=== PATIENT | female | born 1985 ===

== ENCOUNTER → 2020-02-15 08:55 | Outpatient (BNVA) | payer MEDICAID, SELFPAY | PROVIDERS: Visit Provider Physician Assistant | DX: E66.01 Morbid (severe) obesity due to excess calories (principal); Z68.42 Body mass index [BMI] 45.0-49.9, adult | CPT/HCPCS: 99212 ==

== ENCOUNTER 2020-02-15 10:26 | Outpatient (REF) | payer MEDICAID, SELFPAY ==
[2020-02-15 11:44] LABS: MANUAL DIFF FLAG NO
[2020-02-15 11:56] LABS: Basophils Percent Auto 0.5 % (0-2); Eosinophils Absolute Auto 0.2 X10*3/uL (0.0-0.4); Eosinophils Percent Auto 2.6 % (0-4); Hematocrit 32.6 % (37-47); Hemoglobin 9.9 g/dl (12.0-16.0); Imm Gran Abs Auto 0.02 X10*3/uL (0.00-0.03); Imm Gran Pct Auto 0.3 % (0.0-0.4); Lymphocytes Percent Auto 32.4 % (20-40); Mean Corpuscular HGB Conc 30.4 g/dl (31.0-35.0); Mean Corpuscular Hemoglobin 22.3 pg (27.0-33.0); Mean Corpuscular Volume 73.4 fL (80-98); Mean Platelet Volume 10.7 fL (9.4-12.3); Monocytes Absolute Auto 0.4 X10*3/uL (0.1-1.2); Monocytes Percent Auto 7.2 % (2-11); Neutrophils Absolute Auto 3.5 X10*3/uL (2.0-8.3); Platelet Count 411 X10*3/uL (160-400); Red Blood Count 4.44 X10*6/uL (4.20-5.50); Red Cell Distribution Width 17.2 % (11.0-16.0); White Blood Count 6.2 X10*3/uL (4.8-10.8)
[2020-02-15 12:03] LABS: Estimated Average Glucose 108 mg/dL; Hemoglobin A1c % 5.4 %
[2020-02-15 12:26] LABS: Alanine Aminotransferase 11 U/L (0-31); Alkaline Phosphatase 62 U/L (39-117); Anion Gap 12 (12-20); Aspartate Amino Transferase 10 U/L (5-31); Bilirubin Total 0.4 mg/dL (0.0-1.0); Blood Urea Nitrogen 11 mg/dL (9-16); C Reactive Protein 1.77 mg/dL (< or = 0.50); Calcium 8.3 mg/dL (8.4-10.2); Carbon Dioxide 26 mmol/L (22-29); Chloride 106 mmol/L (96-108); Cholesterol 140 mg/dL; Estimated Glomerular Filt Rate > 60; Glucose Fasting 77 mg/dL (60-99); HDL Cholesterol 40 mg/dL; Iron 16 mcg/dL (30-160); LDL Cholesterol Calculated 88 mg/dl; Percent Iron Saturation 4 % (15-50); Potassium 4.2 mmol/l (3.3-5.1); Sodium 140 mmol/L (135-145); Total Iron Binding Capacity 446 mcg/dL (228-428); Total Protein 7.6 g/dL (6.5-8.0); Triglycerides 61 mg/dL; Unsaturated Iron Binding 430 ug/dL
[2020-02-15 12:47] LABS: Ferritin 7 ng/mL (10-122); TSH reflex Free T4 0.85 mIU/mL (0.32-4.0); Vitamin D 25-OH Total 20.9 ng/mL (>30)
[2020-02-15 12:53] LABS: Folate 9.9 ng/mL (> or = 4.0); Vitamin B12 385 pg/mL (200-900)
[2020-02-16 22:43] LABS: Calcium (PTHI) 8.5 mg/dL (8.6-10.2); PTHI 39 pg/mL (14-64)
[2020-02-17 05:42] LABS: Insulin Level Total 9.3 uIU/mL
[2020-02-18 11:19] LABS: Vitamin B1 8 nmol/L (8-30)
[2020-02-18 14:02] LABS: Zinc 53 mcg/dL (60-130)
[2020-02-22 22:14] LABS: Vitamin A 27 mcg/dL (38-98)
== END 2020-02-15 10:27 | disposition home or self-care (01) ==
LOC: HO.LAB 10:26
PROVIDERS: PCP Internal Medicine; Visit Provider Physician Assistant
DX: E66.01 Morbid (severe) obesity due to excess calories (principal)
CPT/HCPCS: 36415; 80053; 80061; 82306; 82607; 82728; 82746; 83036; 83525; 83540; 83970; 84425; 84443; 84590; 84630; 85025; 86140

== ENCOUNTER 2020-02-23 09:48 | Emergency (ER) | payer MEDICAID, SELFPAY ==
[2020-02-23 09:49] VITALS: BP 125/69; PULSE 88; RESP 16; TEMP 32.2; O2SAT 99; BMI 46.7
--- NOTE | 2020-02-23 10:21 | ED_ITS ---
HPI - Allergic Reaction General Chief complaint: Allergic Reaction Stated complaint: allergic reaction Time Seen by Provider: 02/23/20 10:09 Source: patient Mode of arrival: ambulatory History of Present Illness HPI narrative: 34-year-old female with a past medical history of obesity presented to ED complaining of allergic reaction since 3:00 a.m. with notable facial/lip swelling and hoarse voice s/p taking new medications. Reports newly prescribed oyster shell calcium, zinc, and vitamin D3, took for 1st time yesterday morning at 11AM, reaction believed to be due to oyster shell calcium. Denies other new exposures. Denies SOB, intraoral swelling, difficulty swallowing, cough, wheezing, other known allergies MD complaint: allergic reaction and facial swelling Onset (ago): hour(s) Related Data Home Medications Medication Instructions Recorded Confirmed hydroxyzine pamoate 50 mg capsule 50 mg PO BEDTIME 02/15/20 02/15/20 sertraline 50 mg tablet 50 mg PO DAILY 02/15/20 02/15/20 Previous Rx's Medication Instructions Recorded ascorbic acid (vitamin C) 500 mg 500 mg PO DAILY #30 tab 02/15/20 tablet ferrous fumarate 324 mg (106 mg 324 mg PO DAILY #30 tab 02/15/20 iron) tablet calcium carbonate 500 mg calcium 500 mg PO BID #60 tab 02/21/20 (1,250 mg) tablet cholecalciferol (vitamin D3) 25 25 mcg PO DAILY #30 cap 02/21/20 mcg (1,000 unit) capsule zinc 50 mg tablet 15 mg PO DAILY #30 tab 02/21/20 diphenhydramine HCl [Benadryl] 25 mg PO Q6H PRN #14 cap 02/23/20 epinephrine [EpiPen 2-Pal] 0.3 mg IM Q10M PRN #1 ea 02/23/20 famotidine [Pepcid] 20 mg PO BID 14 Days #28 tab 02/23/20 mecobalamin (vitamin B12) 1,000 1,000 mcg PO DAILY #30 tab 02/23/20 mcg disintegrating tablet,sublingual vitamin A 10,000 unit capsule 10,000 unit PO DAILY #30 cap 02/23/20 Allergies Allergy/AdvReac Type Severity Reaction Status Date / Time No Known Allergies Allergy Verified 02/15/20 09:09 [No Known Allergies*] amoxicillin Allergy Unknown DISCHARGE Uncoded 02/15/20 09:09 Review of Systems Review of Systems: Constitutional: No Fever, No Chills, No Fatigue, No Malaise ENT/Mouth: +facial swelling No Hearing loss, No Ear Pain, No Nasal Congestion, + Hoarseness, No sore throat, No Rhinorrhea, No Swallowing Difficulty Eyes: No Redness, No Discharge, No Vision Changes Cardiovascular: No Chest Pain, No SO Respiratory: No Cough, No Wheezing, No Dyspnea Gastrointestinal: No Nausea, No Vomiting, No Diarrhea, No Abdominal pain Musculoskeletal: No joint pain, No Myalgias, No Joint Swelling Skin: No Skin Lesions, No rash Yes all other systems are reviewed and are negative [facility] Past Medical History Attestation statement: The following information was validated with the patient. Medical History (Updated 02/23/20 @ 12:09 by GRICELDA Aguilera) Morbid obesity Surgical History (Updated 02/08/20 @ 08:55 by Portia Lai MA) Hx of section Hx of tubal ligation Family History Family History (Updated 02/08/20 @ 08:58 by Portia Lai MA) Father Hypertension Hip pain Mother Hypertension Diabetes mellitus Acute depression Brother No problems noted. Brother No problems noted. Sister No problems noted. Sister No problems noted. Son No problems noted. Son No problems noted. Daughter No problems noted. Social History Social History (Updated 02/08/20 @ 08:58 by Portia Lai MA) Alcohol intake: never Smoking Status: Never smoker Use of substances other than those prescribed or required for medical reasons: No Advance Directives: No Advance Directives Information Provided: Yes Physical Exam Vital Signs: Vital Signs: Last Vital Signs Temp 89.9 F L 02/23/20 09:49 Pulse 90 02/23/20 11:06 Resp 19 02/23/20 11:06 BP 133/58 L 02/23/20 11:06 Pulse Ox 100 02/23/20 11:06 Body Mass Index 46.7 Const: General: cooperative Orientation/consciousness: patient oriented x3 Limitations: no limitations HENMT: Other: +facial and upper/ lower lip swelling +mild intraoral swelling with hoarse voice, uvula midline without edema Head: Yes normal to inspection Ears: hearing grossly normal bilaterally General nose exam: Normal external nose present Mouth: no drooling and muffled voice Throat: Yes uvula midline, No peritonsillar mass, No uvula laterally displaced and No uvular edema Eyes: General: appearance normal, both eyes and all related structures EOM: EOMs intact bilaterally Neck: Neck: Yes normal visual inspection and Yes no lymphadenopathy Resp: Effort & Inspection: normal respiratory effort, no audible wheezes, no grunting, no respiratory distress, no stridor and no tripod positioning Auscultation: clear to auscultation bilaterally, no rales and no wheezes Cardio: Rate: regular rate Heart sounds: S1 normal heart sound present and S2 normal heart sound present GI: Inspection: Yes normal to inspection Skin: Rashes: no rashes Wounds: no wounds Neuro: General: patient oriented x3 Extrem: General: Yes normal to inspection Course Course Course Narrative: -1208--on re-evaluation patient is sleeping comfortably, no apparent distress, reports symptomatic improvement after medications. Denies SOB, wheeze, cough, intraoral swelling, lungs CTA, satting 100% on RA in no respiratory distress Worrisome signs and symptoms and strict return precautions discussed with patient. Patient was instructed to stop taking newly prescribed medications and follow-up with PCP. Will DC with EpiPen. Patient verbalized understanding and feels safe for discharge home MDM - Allergic Reaction MDM Narrative Medical decision making narrative: 34-year-old female with a past medical history of obesity presented to ED complaining of allergic reaction since 3:00 a.m. with notable facial/lip swelling and hoarse voice s/p taking new medica tions. On exam VSS, NAD, +notable facial and lip swelling with hoarse voice. Lungs CTA, no stridor or wheezing, satting 99% on RA, in no respiratory distress. Likely allergic reaction secondary to new oyster medication. Plan: IV Solu-Medrol, Pepcid, Benadryl, and epi, observe & reassess Discharge Plan Discharge Clinical Impression: Angioedema Patient Disposition: Home, Self-Care Instructions: Angioedema (ED) Additional Instructions: STOP TAKING NEWLY PRESCRIBED MEDICATIONS TAKE BENADRYL AT HOME FOR SWELLING, ITCHING,/ALLERGIC REACTION PEPCID WILL ALSO HELP WITH SYMPTOMS AN EPIPEN WAS SENT TO HER PHARMACY, TAKE IF YOU HAVE DIFFICULTY BREATHING, THROAT CLOSING SENSATION, OR SWELLING OF YOUR FACE/ANAPHYLAXIS, IF ANY OF THESE SYMPTOMS OCCURRED RETURN TO THE ED IMMEDIATELY. IF YOU USE THE EPIPEN RETURN TO THE ED FOLLOW UP WITH HER DOCTOR, CALL TODAY TO LET THEM KNOW THE ADVERSE REACTION TO YOUR MEDICATIONS IF HER SYMPTOMS PERSIST OR WORSEN, HE DEVELOPED COUGH, WHEEZING, ORAL SWELLING, WORSENING FACIAL SWELLING, OR ANY DIFFICULTY BREATHING RETURN TO THE ED Prescriptions: New epinephrine [EpiPen 2-Pal] 0.3 mg/0.3 mL auto-injector 0.3 mg IM Q10M PRN (Reason: anaphylaxis) Qty: 1 RF: 0 diphenhydramine HCl [Benadryl] 25 mg capsule 25 mg PO Q6H PRN (Reason: allergic reaction) Qty: 14 RF: 0 famotidine [Pepcid] 20 mg tablet 20 mg PO BID 14 Days Qty: 28 RF: 0 No Action ferrous fumarate 324 mg (106 mg iron) tablet 324 mg PO DAILY Qty: 30 RF: 2 ascorbic acid (vitamin C) 500 mg tablet 500 mg PO DAILY Qty: 30 RF: 2 cholecalciferol (vitamin D3) 25 mcg (1,000 unit) capsule 25 mcg PO DAILY Qty: 30 RF: 5 zinc 50 mg tablet 15 mg PO DAILY Qty: 30 RF: 0 calcium carbonate [Calcium 500] 500 mg calcium (1,250 mg) tablet 500 mg PO BID Qty: 60 RF: 3 vitamin A 10,000 unit capsule 10,000 unit PO DAILY Qty: 30 RF: 0 mecobalamin (vitamin B12) 1,000 mcg tablet,disintegrating 1,000 mcg PO DAILY Qty: 30 RF: 5 hydroxyzine pamoate 50 mg capsule 50 mg PO BEDTIME RF: 0 sertraline 50 mg tablet 50 mg PO DAILY RF: 0 Referrals: Lubna Barrientos [Emergency Nurse] - 1 day
[2020-02-23] MEDS: diphenhydrAMINE HCL 50 MG/ML VIAL 25 MG IVPUSH (10:31)
[2020-02-23] MEDS: methylPREDNISolone Sod Succ/PF 125 MG/2 ML VIAL IVPUSH (10:34)
[2020-02-23] MEDS: Famotidine/PF 20 MG/2 ML VIAL IVPUSH (10:34)
[2020-02-23 10:37] VITALS: BP 123/73; PULSE 82
[2020-02-23] MEDS: EPINEPHrine 1 MG/ML VIAL 0.3 MG IM (10:37)
[2020-02-23 10:40] VITALS: BP 123/73; PULSE 80; RESP 18; O2SAT 100
[2020-02-23 11:06] VITALS: BP 133/58; PULSE 90; RESP 19; O2SAT 100
--- NOTE | 2020-02-23 11:16 | PC.NURSE ---
pt is speaking on the phone clearly to a family member. denies any sob, ls- cta.
[2020-02-23 12:00] VITALS: BP 125/69; PULSE 99; RESP 20; TEMP 37.1; O2SAT 99
== END 2020-02-23 12:45 | disposition home or self-care (01) ==
PROVIDERS: Emergency Provider Emergency Medicine; PCP Psychiatry & Neurology Neurology
DX: T78.3XXA Angioneurotic edema, initial encounter (principal); T50.905A Adverse effect of unspecified drugs, medicaments and biological substances, initial encounter; Y92.019 Unspecified place in single-family (private) house as the place of occurrence of the external cause
CPT/HCPCS: 96372; 96374; 96375; 99284; J0171; J1200; J2930

== ENCOUNTER → 2020-02-29 08:26 | Outpatient (REF) | payer MEDICAID, SELFPAY ==
--- NOTE | 2020-02-29 13:31 | ECG_ITS ---
Test Reason : CP Blood Pressure : / mmHG Vent. Rate : 068 BPM Atrial Rate : 068 BPM P-R Int : 154 ms QRS Dur : 078 ms QT Int : 396 ms P-R-T Axes : 053 065 038 degrees QTc Int : 421 ms Normal sinus rhythm Normal ECG No previous ECGs available Referred By: Lani Garcia Electronically Signed By:Ryan Woody
--- NOTE | 2020-02-29 13:34 | XR_ITS ---
EXAMINATION: XR CHEST CLINICAL INFORMATION: Shortness of breath COMPARISON: None TECHNIQUE: 2 views of the chest were obtained. FINDINGS: The lungs are clear. There is no airspace consolidation, groundglass opacity, or effusion. The heart is normal in size. The vascularity is normal. The hilar and mediastinal contours are normal. There is no acute bony abnormality. There is mild levocurvature thoracolumbar spine with vertebral body spurring. XR/XR chest 2V IMPRESSION: Unremarkable examination.
== END ==
LOC: HO.CARD 08:26
PROVIDERS: Referring Provider Pediatrics; Visit Provider Physician Assistant
DX: R06.02 Shortness of breath (principal); E66.01 Morbid (severe) obesity due to excess calories; Z68.42 Body mass index [BMI] 45.0-49.9, adult
CPT/HCPCS: 71046; 93005

== ENCOUNTER 2020-03-03 12:44 | Outpatient (REF) | payer MEDICAID, SELFPAY | END 2020-03-03 12:45 | disposition home or self-care (01) | LOC: HO.LAB 12:44 | PROVIDERS: Visit Provider Internal Medicine | DX: Z20.828 Contact with and (suspected) exposure to other viral communicable diseases (principal) | CPT/HCPCS: C9803; U0003 ==

== ENCOUNTER 2020-03-06 09:35 | Outpatient (REF) | payer MEDICAID, SELFPAY ==
--- NOTE | 2020-03-06 09:40 | US_ITS ---
EXAMINATION: US COMPLETE ABDOMEN WITH LIVER ELASTOGRAPHY CLINICAL INFORMATION: Morbid obesity COMPARISON: None. TECHNIQUE: Real-time imaging of the abdominal viscera. Noninvasive ultrasound liver fibrosis assessment is performed using Geovanny ElastPQ point quantification shear wave elastography (pSWE) with a 5 MHz transducer. Multiple elastography samples are obtained. FINDINGS: PANCREAS: Normal. The visualized pancreatic head and body are normal in appearance. The remainder of the pancreas is obscured from visualization by the overlying bowel gas. ABDOMINAL AORTA: The proximal, middle, and distal aortic segments are normal in caliber. INFERIOR VENA CAVA: Visualized portions are normal. LIVER: There is some homogeneously increased echotexture to the liver consistent with fatty infiltration. No focal mass or intrahepatic bile duct dilatation is identified. The right lobe measures 14.9 cm in length. The left lobe measures 11.6 cm in length. There is hepatopedal flow seen within the main portal vein. Shear wave elastography provides a median stiffness of 1.07 m/s (reference: normal median stiffness is 0.81 - 1.22 m/s). The IQR/median stiffness to assess sampling precision is 0.55 (reference: optimal IQR/median stiffness is under 0.3). GALLBLADDER: Normal. The gallbladder is physiologically distended without evidence of stones, sludge, polyps, wall thickening or pericholecystic fluid. COMMON BILE DUCT: Normal in caliber measuring 0.6 cm in diameter. RIGHT KIDNEY: Normal. No hydronephrosis. No renal calculi or focal parenchymal lesions. The kidney measures 11.5 cm in maximum dimension. LEFT KIDNEY: Normal. No hydronephrosis. No renal calculi or focal parenchymal lesions. The kidney measures 10.9 cm in maximum dimension. SPLEEN: Normal. The spleen measures 9.8 cm in maximum dimension. FREE FLUID: None. US/US abdomen comp w elastography IMPRESSION: 1. Fatty infiltration of the liver 2. Elastography: Liver elastography measurements are within normal (METAVIR Stage F0).
--- NOTE | 2020-03-06 09:40 | FL_ITS ---
EXAMINATION: XR GI SERIES CLINICAL INFORMATION: Severe obesity due to excess caries. COMPARISON: None TECHNIQUE: Routine upper GI air-contrast study was performed. FINDINGS: Following oral administration of thick barium and effervescent granules there is normal propagation bolus from the oral cavity through the pharynx, esophagus into stomach without any evidence of obstruction, narrowing or stricture. On placing patient supine and prone lying the course, caliber and peristalsis of stomach, duodenal bulb and the sweep is normal. The mucosal pattern of esophagus, stomach and the duodenal bulb and the sweep is normal. No gastroesophageal reflux or hiatal hernia seen. FLUOROSCOPY TIME: 2.2 minutes DOSE AREA PRODUCT: 56.84 uGy-m2 (microgray-meter squared) FL/FL upper GI series IMPRESSION: Unremarkable upper GI air contrast study.
== END 2020-03-06 09:36 | disposition home or self-care (01) ==
LOC: HO.US 09:35
PROVIDERS: Visit Provider Surgery
DX: Z01.818 Encounter for other preprocedural examination (principal); E66.01 Morbid (severe) obesity due to excess calories; K21.9 Gastro-esophageal reflux disease without esophagitis
CPT/HCPCS: 74240; 76705; 76981

== ENCOUNTER → 2020-03-08 07:39 | Outpatient (BNVA) | payer MEDICAID, SELFPAY | PROVIDERS: Visit Provider Surgery | DX: Z76.89 Persons encountering health services in other specified circumstances (principal) ==

== ENCOUNTER → 2020-03-09 08:07 | Outpatient (BNVA) | payer MEDICAID, SELFPAY | PROVIDERS: Visit Provider Physician Assistant | DX: Z76.89 Persons encountering health services in other specified circumstances (principal) ==

== ENCOUNTER → 2020-04-05 08:09 | Outpatient (BNVA) | payer MEDICAID, SELFPAY | PROVIDERS: Visit Provider Surgery ==

== ENCOUNTER → 2020-04-12 08:13 | Outpatient (BNVA) | payer MEDICAID, SELFPAY | PROVIDERS: Visit Provider Dietitian, Registered | DX: Z76.89 Persons encountering health services in other specified circumstances (principal) ==

== ENCOUNTER → 2020-05-03 08:26 | Outpatient (BNVA) | payer MEDICAID, SELFPAY | PROVIDERS: Visit Provider Surgery ==

== ENCOUNTER 2020-06-03 05:05 | Emergency (ER) | payer MEDICAID, SELFPAY ==
--- NOTE | 2020-06-03 05:25 | ED.GENADULT ---
HPI - General Adult General Chief complaint: Allergic Reaction Stated complaint: Facial Swelling/Allergic Reaction Time Seen by Provider: 06/03/20 05:08 Source: patient Mode of arrival: ambulatory Limitations: no limitations History of Present Illness HPI narrative: patient comes to the ED c/o facial swelling, worse on the left side of the lip. Patient states that he has had this before, a few months ago due to oyster extract pills. Patient states also that she has had lip swelling in the past with Advil. Patient states that last night before going to bed, she took 3 ibuprofen, went to bed, at 04:00 she woke up because her face started to feel swollen. Patient states that she was not aware that she is allergic to NSAIDs. Patient has no difficulty breathing, no difficulty handling secretions, no hives Related Data Home Medications Medication Instructions Recorded Confirmed hydroxyzine pamoate 50 mg capsule 50 mg PO BEDTIME 02/15/20 03/08/20 sertraline 50 mg tablet 50 mg PO DAILY 02/15/20 03/08/20 Previous Rx's Medication Instructions Recorded ascorbic acid (vitamin C) 500 mg 500 mg PO DAILY #30 tab 02/15/20 tablet ferrous fumarate 324 mg (106 mg 324 mg PO DAILY #30 tab 02/15/20 iron) tablet cholecalciferol (vitamin D3) 25 25 mcg PO DAILY #30 cap 02/21/20 mcg (1,000 unit) capsule zinc 50 mg tablet 15 mg PO DAILY #30 tab 02/21/20 diphenhydramine HCl [Benadryl] 25 mg PO Q6H PRN #14 cap 02/23/20 epinephrine [EpiPen 2-Pal] 0.3 mg IM Q10M PRN #1 ea 02/23/20 famotidine [Pepcid] 20 mg PO BID 14 Days #28 tab 02/23/20 mecobalamin (vitamin B12) 1,000 1,000 mcg PO DAILY #30 tab 02/23/20 mcg disintegrating tablet,sublingual vitamin A 10,000 unit capsule 10,000 unit PO DAILY #30 cap 02/23/20 Allergies Allergy/AdvReac Type Severity Reaction Status Date / Time calcium Allergy Severe swollen Verified 06/03/20 05:30 NSAIDS (Non-Steroidal Allergy Severe Angioedema Verified 06/03/20 05:44 Anti-Inflamma oyster extract Allergy Severe swollen Verified 06/03/20 05:30 ibuprofen Allergy Swelling Verified 06/03/20 05:30 amoxicillin Allergy Unknown DISCHARGE Uncoded 02/15/20 09:09 Review of Systems Review of Systems: Constitutional : No Weight loss, No Fever, No Chills, No Night Sweats, No Fatigue, No Malaise ENT/Mouth : No Hearing loss, No Ear Pain, No Nasal Congestion, No Sinus Pain, No Hoarseness, No sore throat, No Rhinorrhea, No Swallowing Difficulty, complaining of left-sided lower lip swelling Eyes: No Eye Pain, No Swelling, No Redness, No Foreign Body, No Discharge, No Vision Changes Cardiovascular : No Chest Pain, No SOB, No Dyspnea on Exertion, No Orthopnea, No Edema, No Palpitations Respiratory : No Cough, No Sputum, No Wheezing, No Smoke Exposure, No Dyspnea Gastrointestinal : No Nausea, No Vomiting, No Diarrhea, No Constipation, No abdominal Pain, No Hematochezia, No Melena Genitourinary : no irregular bleeding, No Dysuria, No Urinary Frequency, No Hematuria, No Urinary Incontinence, No Urgency, No Flank Pain, No Urinary Flow Changes, No Hesitancy Musculoskeletal : No joint pain, No Myalgias, No Joint Swelling Skin : No Skin Lesions, No rash Neuro : No Weakness, No Numbness, No Paresthesias, No Loss of Consciousness, No Dizziness, No Headache Psych : No Anxiety/Panic, No Depression, No SI/HI/AH/VH, No Social Issues, Heme/Lymph: No Bruising, No Bleeding,No Lymphadenopathy Endocrine : No Polyuria, No Polydipsia, No Temperature Intolerance PMFSH Past Medical History Medical History Depression Morbid obesity Surgical History Hx of section Hx of tubal ligation Family History Family History (Updated 02/08/20 @ 08:58 by Portia Lai MA) Father Hypertension Hip pain Mother Hypertension Diabetes mellitus Acute depression Brother No problems noted. Brother No problems noted. Sister No problems noted. Sister No problems noted. Son No problems noted. Son No problems noted. Daughter No problems noted. Social History Social History (Updated 02/08/20 @ 08:58 by Portia Lai MA) Alcohol intake: never Smoking Status: Never smoker Advance Directives: No Advance Directives Information Provided: No Physical Exam Vital Signs: Vital Signs: Last Vital Signs Temp 98.3 F 06/03/20 05:31 Pulse 81 06/03/20 05:31 Resp 20 06/03/20 05:31 BP 135/71 06/03/20 05:31 Pulse Ox 99 06/03/20 05:31 Body Mass Index 45.7 Appearance: Alert. Oriented X3. No acute distress. Eyes: Pupils equal, round and reactive to light. ENT: Pharynx normal. Oropharynx within normal limits, no swollen tongue. Mild to moderate swelling on the left lip left side Neck: Normal inspection. Neck supple. No lymph nodes noted. No crepitus CVS: Normal heart rate and rhythm. Pulses normal. Normal S1 and S2 Respiratory: No respiratory distress. Breath sounds normal. No Wheezing. No rales Abdomen: Soft and nontender. No rigidity. No distention. good BS x4 Skin: Skin warm and dry. Normal skin color. Normal skin turgor. Extremities: No lower extremity edema. No lower extremity edema. No Lacerations. No Rash Neuro: Oriented X 3. No motor deficit. No sensory deficit. Moving all extermities. No slurred speech. Course Course Course Narrative: Patient's lips are no longer swollen, oropharynx remains within normal limits. patient has no breathing difficulty. Patient has 2 boxes of epi pens, states she does not need a prescription. Discharge Plan Discharge Clinical Impression: Allergic angioedema Qualifiers: Encounter type: initial encounter Qualified Code(s): T78.3XXA - Angioneurotic edema, initial encounter Patient Disposition: Home, Self-Care Instructions: General Allergic Reaction (ED) Additional Instructions: Please do not take Motrin, ibuprofen, or any NSAIDs , you are severely allergic. Have with your EpiPen all the time. For pain you may use Tylenol Please follow-up with your primary care physician tomorrow. If you have any worsening or new symptoms, please return to the emergency room or call 911 Prescriptions: No Action ferrous fumarate 324 mg (106 mg iron) tablet 324 mg PO DAILY Qty: 30 RF: 2 ascorbic acid (vitamin C) 500 mg tablet 500 mg PO DAILY Qty: 30 RF: 2 cholecalciferol (vitamin D3) 25 mcg (1,000 unit) capsule 25 mcg PO DAILY Qty: 30 RF: 5 zinc 50 mg tablet 15 mg PO DAILY Qty: 30 RF: 0 vitamin A 10,000 unit capsule 10,000 unit PO DAILY Qty: 30 RF: 0 mecobalamin (vitamin B12) 1,000 mcg tablet,disintegrating 1,000 mcg PO DAILY Qty: 30 RF: 5 epinephrine [EpiPen 2-Pal] 0.3 mg/0.3 mL auto-injector 0.3 mg IM Q10M PRN (Reason: anaphylaxis) Qty: 1 RF: 0 diphenhydramine HCl [Benadryl] 25 mg capsule 25 mg PO Q6H PRN (Reason: allergic reaction) Qty: 14 RF: 0 famotidine [Pepcid] 20 mg tablet 20 mg PO BID 14 Days Qty: 28 RF: 0 hydroxyzine pamoate 50 mg capsule 50 mg PO BEDTIME RF: 0 sertraline 50 mg tablet 50 mg PO DAILY RF: 0
[2020-06-03 05:28] VITALS: BP 135/71; PULSE 83
[2020-06-03] MEDS: EPINEPHrine 1 MG/ML VIAL 0.3 MG IM (05:28)
[2020-06-03] MEDS: diphenhydrAMINE HCL 50 MG/ML VIAL IVPUSH (05:29)
[2020-06-03] MEDS: methylPREDNISolone Sod Succ 125 MG/2 ML VIAL IVPUSH (05:29)
[2020-06-03] MEDS: Famotidine/PF 20 MG/2 ML VIAL IVPUSH (05:29)
[2020-06-03 05:31] VITALS: BP 135/71; PULSE 81; RESP 20; TEMP 36.8; O2SAT 99; BMI 45.7
--- NOTE | 2020-06-03 05:44 | PC.NURSE ---
PT HAS SWELLING TO LOWER LEFT LIP, DENIES EDEMA TO TONGUE, OR THROAT. PT HAS A CLEAR STRONG VOICE, NO DIFFICULTY SPEAKING OR SWALLOWING. NO VISUALIZED EDEMA TO OROPHARYNX, BBS CLEAR AND NON LABORED. PT HAS EXPERIENCED SIMILAIR EDEMA IN THE PAST, AFTER EATING OYSTERS.
[2020-06-03 06:00] VITALS: BP 116/47; PULSE 70; RESP 16; TEMP 36.8; O2SAT 99
--- NOTE | 2020-06-03 06:15 | PC.NURSE ---
PT DROWSY, TRYING TO SLEEP. PT'S LOWER LIP RE EVALUATED FOR EDEMA. SMALL REDUCTION IN SIZE OF LOWER LIP, PT FEELS LIKE EDEMA HAS IMPROVED SLIGHTLY.
--- NOTE | 2020-06-03 06:23 | PC.NURSE ---
PT PLACED ON BARREL POLISHER INSIDE AFTER RECEIVING IM EPI. PT'S HR REMAINED UNDER 100 BPM.
== END 2020-06-03 07:10 | disposition home or self-care (01) ==
LOC: HO.ED 05:50
PROVIDERS: Emergency Provider Emergency Medicine
DX: L23.9 Allergic contact dermatitis, unspecified cause (principal); L27.9 Dermatitis due to unspecified substance taken internally; Z79.899 Other long term (current) drug therapy
CPT/HCPCS: 96372; 96374; 96375; 99284; J0171; J1200; J2930

== ENCOUNTER 2021-12-18 09:18 | Emergency (ER) | payer MEDICAID, SELFPAY ==
--- NOTE | ~2021-12-18 | XR_ITS ---
EXAMINATION: XR HIP, LEFT CLINICAL INFORMATION: Left hip pain. COMPARISON: None TECHNIQUE: Two views of the left hip. FINDINGS: Mild bilateral hip degenerative joint changes are seen in the right greater than left. There is no acute fracture or dislocation. The bony pelvis is intact. The soft tissues are unremarkable. XR/XR hip LT w PEL1V IMPRESSION: Mild bilateral hip osteoarthritis. No acute abnormality.
--- NOTE | ~2021-12-18 | XR_ITS ---
EXAMINATION: XR SHOULDER, LEFT CLINICAL INFORMATION: Left shoulder pain. COMPARISON: None TECHNIQUE: AP external rotation, Grashey, scapular Y, and axillary views of the left shoulder. FINDINGS: The bones and soft tissues are normal. No fracture. Glenohumeral and acromioclavicular alignment is anatomic with normal joint space. No abnormal soft tissue calcifications. XR/XR shoulder LT min 2V IMPRESSION: Unremarkable left shoulder.
[2021-12-18 09:50] VITALS: BP 135/69; PULSE 76; RESP 18; TEMP 35.9; O2SAT 100; BMI 46.0
[2021-12-18] MEDS: Lidocaine 4 % Patch ADH..PATCH 1 PATCH TRANSDERMA (10:49)
--- NOTE | 2021-12-18 11:20 | ED_ITS ---
HPI - Extremity Problem General Chief complaint: Extremity Injury, Upper Stated complaint: L arm hard to lift. L hip pain Time Seen by Provider: 12/18/21 10:28 Source: patient History of Present Illness HPI Narrative: 36-year-old female with a past medical history of depression, obesity, presenting to the ED complaining of left shoulder pain and left hip pain x months. Reports pain worse with movement. Denies known injury, trauma, fall, heavy lifting, numbness, tingling, weakness, chest pain, shortness of breath MD Complaint: extremity pain Onset (ago): month(s) Related Data Home Medications Medication Instructions Recorded Confirmed hydroxyzine pamoate 50 mg capsule 50 mg PO BEDTIME 02/15/20 03/08/20 sertraline 50 mg tablet 50 mg PO DAILY 02/15/20 03/08/20 Previous Rx's Medication Instructions Recorded ascorbic acid (vitamin C) 500 mg 500 mg PO DAILY #30 tabs 02/15/20 tablet ferrous fumarate 324 mg (106 mg 324 mg PO DAILY #30 tabs 02/15/20 iron) tablet cholecalciferol (vitamin D3) 25 25 mcg PO DAILY #30 caps 02/21/20 mcg (1,000 unit) capsule zinc 50 mg tablet 15 mg PO DAILY #30 tabs 02/21/20 diphenhydramine HCl 25 mg capsule 25 mg PO Q6H PRN allergic reaction 02/23/20 (Benadryl) #14 caps epinephrine 0.3 mg/0.3 mL 0.3 mg (0.3 mL) IM Q10M PRN 02/23/20 injection, auto-injector (EpiPen anaphylaxis #1 ea 2-Pal) famotidine 20 mg tablet (Pepcid) 20 mg PO BID 14 days #28 tabs 02/23/20 mecobalamin (vitamin B12) 1,000 1,000 mcg PO DAILY #30 tabs 02/23/20 mcg disintegrating tablet,sublingual vitamin A 10,000 unit capsule 10,000 unit PO DAILY #30 caps 02/23/20 acetaminophen 500 mg tablet 500 mg PO Q6H PRN fever or pain 12/18/21 (Tylenol Extra Strength) #14 tabs cyclobenzaprine 5 mg tablet 5 mg PO Q8H PRN pain (scale score 12/18/21 7-10) 5 days #14 tabs lidocaine 5 % topical patch 1 patch topical DAILY PRN pain #30 12/18/21 (Lidoderm) ea Allergies Allergy/AdvReac Type Severity Reaction Status Date / Time calcium Allergy Severe swollen Verified 06/03/20 05:30 NSAIDS (Non-Steroidal Allergy Severe Angioedema Verified 06/03/20 05:44 Anti-Inflamma oyster extract Allergy Severe swollen Verified 06/03/20 05:30 ibuprofen Allergy Swelling Verified 06/03/20 05:30 amoxicillin Allergy Unknown DISCHARGE Uncoded 02/15/20 09:09 Review of Systems Review of Systems: Constitutional: No Fever, No Chills ENT/Mouth: No Ear Pain, No Nasal Congestion, No sore throat, No Rhinorrhea, No Swallowing Difficulty Cardiovascular: No Chest Pain, No SOB Respiratory: No Cough, No Sputum, No Wheezing Gastrointestinal: No Nausea, No Vomiting, No Diarrhea, No Constipation, No Abdominal pain Genitourinary: No Dysuria, No Urinary Frequency, No Hematuria, No Urinary Incontinence/retention Musculoskeletal: + joint pain,+ Myalgias, No Joint Swelling Skin: No Skin Lesions, No rash Neuro: No Weakness, No Numbness, No Paresthesias Yes all other systems are reviewed and are negative Constitutional: Constitutional: Reports as per [facility] Past Medical History Attestation statement: The following information was validated with the patient. Medical History Depression Morbid obesity Surgical History Hx of section Hx of tubal ligation Family History Family History Father Hypertension Hip pain Mother Hypertension Diabetes mellitus Acute depression Brother No problems noted. Brother No problems noted. Sister No problems noted. Sister No problems noted. Son No problems noted. Son No problems noted. Daughter No problems noted. Social History Social History Alcohol intake: never Advance Directives: No Advance Directives Information Provided: No Physical Exam Vital Signs: Vital Signs: Last Vital Signs Temp 96.6 F L 12/18/21 09:50 Pulse 76 12/18/21 09:50 Resp 18 12/18/21 09:50 BP 135/69 12/18/21 09:50 Pulse Ox 100 12/18/21 09:50 O2 Del Method 12/18/21 09:50 BMI result Body Mass Index 46.0 Const: General: cooperative, healthy appearing and no acute distress Orientation/consciousness: patient oriented x3 Limitations: no limitations HEENT: Head: Yes normal to inspection and Yes atraumatic Ears: hearing grossly normal bilaterally General nose exam: Normal external nose present Face and sinus: Yes normal facial exam Eyes: General: appearance normal, both eyes and all related structures EOM: EOMs intact bilaterally Neck: Other: No midline cervical spinous tenderness. No trapezius muscle tenderness Neck: Yes normal visual inspection and Yes no meningeal signs Resp: Effort & Inspection: normal respiratory effort and no respiratory distre ss Auscultation: clear to auscultation bilaterally Cardio: Rate: regular rate Heart sounds: S1 normal heart sound present and S2 normal heart sound present Peripheral pulses: Peripheral pulses 2+ throughout GI: Inspection: Yes normal to inspection Palpation (GI): Soft to palpation, nontender, no guarding and not rigid Back/Spine/Pelvis: Other: No midline thoracic/lumbar spinous tenderness/step-off or deformity Skin: Rashes: no rashes Wounds: no wounds Neuro: General: patient oriented x3, tone normal and no meningeal signs Gait exam (Neuro): Normal gait present Extrem: Other: Left shoulder without deformity. Tenderness to AC joint. Decreased abduction and internal rotation secondary to pain. Neurovascular intact distally. No erythema/warmth Left hip normal to inspection, mildly tender, no erythema/warmth. Full range of motion intact. Pelvis stable. No pedal edema/calf tenderness General: Yes normal to inspection and Yes capillary refill normal Course Course Course Narrative: XR shoulder LT min 2V IMPRESSION: Unremarkable left shoulder. XR hip LT w PEL1V IMPRESSION: Mild bilateral hip osteoarthritis. No acute abnormality. > Results discussed with patient including worrisome signs and symptoms and strict return precautions, and when to return to the emergency department. They verbalized understanding and feel safe for discharge at this time. MDM - Extremity (Nontraumatic) MDM Narrative Medical decision making narrative: 36-year-old female with a past medical history of depression, obesity, presenting to the ED complaining of left shoulder pain and left hip pain x months. On exam vital signs stable, NAD, nontoxic appearing, physical exam as above pain concern for osteoarthritis vs MSK pain/strain or rotator cuff injury vs tendinitis. Low suspicion for ACS or DVT Plan: X-rays, pain management, orthopedic follow-up Medical Records Attestation: I reviewed the patient's medical records. Lab Data Attestation: I reviewed the patient's lab results. Discharge Plan Discharge Clinical Impression: Left shoulder pain Patient Disposition: Home, Self-Care Instructions: Osteoarthritis (ED), Arthralgia (ED) Additional Instructions: X-ray of her shoulder is unremarkable. X-ray of her left hip showed bilateral hip osteoarthritis You should follow-up with her primary care doctor and Orthopedics as needed Tylenol and Lidoderm patches will help with pain Flexeril as a muscle relaxer, take at night as makes you drowsy, do not drive, drink alcohol, or operate machinery while taking Apply heat Rest If you develop chest pain, shortness of breath, persistent worsening symptoms return to the ED Prescriptions: New acetaminophen [Tylenol Extra Strength] 500 mg tablet 500 mg PO Q6H PRN (Reason: fever or pain) Qty: 14 0RF lidocaine [Lidoderm] 5 % adhesive patch,medicated 1 patch topical DAILY MDD remove after 12 hours PRN (Reason: pain) Qty: 30 0RF Rx Instructions: leave on most painful area for up to 12 hrs cyclobenzaprine 5 mg tablet 5 mg PO Q8H PRN (Reason: pain (scale score 7-10)) 5 Days Qty: 14 0RF No Action ferrous fumarate 324 mg (106 mg iron) tablet 324 mg PO DAILY Qty: 30 2RF ascorbic acid (vitamin C) 500 mg tablet 500 mg PO DAILY Qty: 30 2RF Rx Instructions: take with iron cholecalciferol (vitamin D3) 25 mcg (1,000 unit) capsule 25 mcg PO DAILY Qty: 30 5RF zinc 50 mg tablet 15 mg PO DAILY Qty: 30 0RF vitamin A 10,000 unit capsule 10,000 unit PO DAILY Qty: 30 0RF mecobalamin (vitamin B12) 1,000 mcg tablet,disintegrating 1,000 mcg PO DAILY Qty: 30 5RF epinephrine [EpiPen 2-Pal] 0.3 mg/0.3 mL auto-injector 0.3 mg IM Q10M PRN (Reason: anaphylaxis) Qty: 1 0RF Rx Instructions: for 2 doses diphenhydramine HCl [Benadryl] 25 mg capsule 25 mg PO Q6H PRN (Reason: allergic reaction) Qty: 14 0RF famotidine [Pepcid] 20 mg tablet 20 mg PO BID 14 Days Qty: 28 0RF hydroxyzine pamoate 50 mg capsule 50 mg PO BEDTIME sertraline 50 mg tablet 50 mg PO DAILY Referrals: [facility] [place] [Provider Group] - 1 week
== END 2021-12-18 12:04 | disposition home or self-care (01) ==
PROVIDERS: Emergency Provider Emergency Medicine
DX: M79.602 Pain in left arm (principal); M25.552 Pain in left hip
CPT/HCPCS: 73030; 73502; 99282; 99283

== ENCOUNTER 2022-03-23 19:30 | Emergency (ER) | payer MEDICAID, SELFPAY ==
[2022-03-23 19:37] VITALS: BP 158/75; PULSE 82; RESP 20; TEMP 36.6; O2SAT 100; BMI 46.6
--- NOTE | 2022-03-23 19:38 | ED.GENADULT ---
HPI - General Adult General Chief complaint: Vaginal Bleeding <GRICELDA Vargas - Last Filed: 03/23/22 19:40> Stated complaint: vaginal spotting <GRICELDA Vargas - Last Filed: 03/23/22 19:40> Time Seen by Provider: 03/23/22 19:58 <GRICELDA Vargas - Last Filed: 03/23/22 19:40> Source: patient <Aditi Phillip NP - Last Filed: 03/24/22 02:54> Mode of arrival: ambulatory <Aditi Phillip NP - Last Filed: 03/24/22 02:54> Limitations: no limitations <Aditi Phillip NP - Last Filed: 03/24/22 02:54> History of Present Illness HPI narrative: 37-year-old female presents with 4 days of abnormal vaginal bleeding. States that the 4 days of bleeding have been light, spotting, an inconsistent with her menstrual cycle. She finished her cycle 2 weeks ago. She has not report any pain, or abnormal vaginal discharge. <Aditi Phillip NP - Last Filed: 03/24/22 02:54> Onset (ago): day(s) (4) <Aditi Phillip NP - Last Filed: 03/24/22 02:54> Location: pelvis and genitals <Aditi Phillip NP - Last Filed: 03/24/22 02:54> Radiation: non-radiation <Aditi Phillip NP - Last Filed: 03/24/22 02:54> Severity: mild <Aditi Phillip NP - Last Filed: 03/24/22 02:54> Treatments prior to arrival: none <Aditi Phillip NP - Last Filed: 03/24/22 02:54> Related Data Home medications: Home Medications Medication Instructions Recorded Confirmed hydroxyzine pamoate 50 mg capsule 50 mg PO BEDTIME 02/15/20 03/08/20 sertraline 50 mg tablet 50 mg PO DAILY 02/15/20 03/08/20 Previous Rx's Medication Instructions Recorded ascorbic acid (vitamin C) 500 mg 500 mg PO DAILY #30 tabs 02/15/20 tablet ferrous fumarate 324 mg (106 mg 324 mg PO DAILY #30 tabs 02/15/20 iron) tablet cholecalciferol (vitamin D3) 25 25 mcg PO DAILY #30 caps 02/21/20 mcg (1,000 unit) capsule zinc 50 mg tablet 15 mg PO DAILY #30 tabs 02/21/20 diphenhydramine HCl 25 mg capsule 25 mg PO Q6H PRN allergic reaction 02/23/20 (Benadryl) #14 caps epinephrine 0.3 mg/0.3 mL 0.3 mg (0.3 mL) IM Q10M PRN 02/23/20 injection, auto-injector (EpiPen anaphylaxis #1 ea 2-Pal) famotidine 20 mg tablet (Pepcid) 20 mg PO BID 14 days #28 tabs 02/23/20 mecobalamin (vitamin B12) 1,000 1,000 mcg PO DAILY #30 tabs 02/23/20 mcg disintegrating tablet,sublingual vitamin A 10,000 unit capsule 10,000 unit PO DAILY #30 caps 02/23/20 acetaminophen 500 mg tablet 500 mg PO Q6H PRN fever or pain 12/18/21 (Tylenol Extra Strength) #14 tabs cyclobenzaprine 5 mg tablet 5 mg PO Q8H PRN pain (scale score 12/18/21 7-10) 5 days #14 tabs lidocaine 5 % topical patch 1 patch topical DAILY PRN pain #30 12/18/21 (Lidoderm) ea <GRICELDA Vargas - Last Filed: 03/23/22 19:40> Allergies/adverse reactions: Allergies Allergy/AdvReac Type Severity Reaction Status Date / Time calcium Allergy Severe swollen Verified 03/23/22 19:43 NSAIDS (Non-Steroidal Allergy Severe Angioedema Verified 03/23/22 19:43 Anti-Inflamma oyster extract Allergy Severe swollen Verified 03/23/22 19:43 ibuprofen Allergy Swelling Verified 03/23/22 19:43 amoxicillin Allergy Unknown DISCHARGE Uncoded 03/23/22 19:43 <GRICELDA Vargas - Last Filed: 03/23/22 19:40> Review of Systems Review of Systems: Constitutional: No Fever, No Chills Cardiovascular: No Chest Pain, No SOB Respiratory: No Cough, No Dyspnea Gastrointestinal: No Nausea, No Vomiting, No Diarrhea, No abdominal Pain Genitourinary: Positive abnormal vaginal bleeding, No Dysuria, No Hematuria Musculoskeletal: No joint pain, No Myalgias, No Joint Swelling Skin: No Skin lacerations, No rash Neuro: No Weakness, No Numbness, No Paresthesias, No Dizziness, No Headache <Aditi Phillip NP - Last Filed: 03/24/22 02:54> Yes all other systems are reviewed and are negative <Aditi Phillip NP - Last Filed: 03/24/22 02:54> PMFSH Past Medical History Attestation statement: The following information was validated with the patient. <Aditi Phillip NP - Last Filed: 03/24/22 02:54> Source: old records reviewed <Aditi Phillip NP - Last Filed: 03/24/22 02:54> Medical History: Medical History Depression Morbid obesity <GRICELDA Vargas - Last Filed: 03/23/22 19:40> Surgical History: Surgical History Hx of section Hx of tubal ligation <GRICELDA Vargas - Last Filed: 03/23/22 19:40> Family History Family History: Family History Father Hypertension Hip pain Mother Hypertension Diabetes mellitus Acute depression Brother No problems noted. Brother No problems noted. Sister No problems noted. Sister No problems noted. Son No problems noted. Son No problems noted. Daughter No problems noted. <GRICELDA Vargas - Last Filed: 03/23/22 19:40> Social History Social History: Social History Alcohol intake: never Advance Directives: No Advance Directives Information Provided: Yes <GRICELDA Vargas - Last Filed: 03/23/22 19:40> Physical Exam ED Vital Signs: Vital Signs - 24 hr 03/23/22 19:37 Temperature 98 F Pulse Rate 82 Respiratory Rate 20 Blood Pressure 158/75 H Pulse Oximetry 100 Oxygen Delivery Method Room Air BMI result Body Mass Index 46.6 <GRICELDA Vargas Last Filed: 03/23/22 19:40> Vital Signs - 24 hr 03/23/22 19:37 Temperature 98 F Pulse Rate 82 Respiratory Rate 20 Blood Pressure 158/75 H Pulse Oximetry 100 Oxygen Delivery Method Room Air BMI result Body Mass Index 46.6 <Aditi Phillip NP - Last Filed: 03/24/22 02:54> Appearance: Alert. Oriented X3. No acute distress. Eyes: Pupils equal, round and reactive to light. ENT: Pharynx normal. Neck: Normal inspection. Neck supple. CVS: Normal heart rate and rhythm. Pulses normal. Respiratory: No respiratory distress. Breath sounds normal. Abdomen: Soft and nontender. Skin: Skin warm and dry. Normal skin color. Normal skin turgor. Extremities: No lower extremity edema. Gait well-balanced well coordinated. Neuro: No motor deficit. No sensory deficit. Cranial nerves 2-12 intact <Aditi Phillip NP - Last Filed: 03/24/22 02:54> External Female Exam: normal external appearance <Aditi Phillip NP - Last Filed: 03/24/22 02:54> Speculum Exam - Vagina: normal appearance of the vagina, normal palpation and vaginal bleeding (Scant from the os) <Aditi Phillip NP - Last Filed: 03/24/22 02:54> Speculum Exam - Cervix: normal appearance of the cervix <Aditi Phillip NP - Last Filed: 03/24/22 02:54> Bimanual exam- vagina & uterus: normal bimanual exam, normal palpation, uterine size normal and consistency normal <Aditi Phillip NP - Last Filed: 03/24/22 02:54> Bimanual Exam- Adnexa, other: normal adnexae <Aditi Phillip NP - Last Filed: 03/24/22 02:54> OB/external & speculum: vaginal bleeding (Scant from the os) <Aditi Phillip NP - Last Filed: 03/24/22 02:54> Course Course Course Narrative: RME performed by Citnhia Velarde PA-C. Patient is a 37 year old female presenting to the emergency department with vaginal spotting. Labs ordered. Patient placed back in waiting room pending results and room availability. <GRICELDA Vargas Last Filed: 03/23/22 19:40> RME performed by Cinthia Velarde PA-C. Patient is a 37 year old female presenting to the emergency department with vaginal spotting. Labs ordered. Patient placed back in waiting room pending results and room availability. 37-year-old female presents for evaluation of 4 days of scant vaginal spotting. She states that she had her menstrual cycle 2 weeks ago, and has had 4 days of pink blood on the toilet paper when wiping. Physical exam is unremarkable, pelvic exam is within normal limits, scant amount of bleeding from the cervical os, no cervical motion tenderness or adnexal tenderness to palpation. No trauma, or any other concerning findings during physical exam. 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 At this time I do not feel that this patient requires any further imaging, pelvic ultrasound is not indicated as patient does not have any adnexal tenderness, and has no indication of ovarian torsion. Patient's bleeding is scant, will have patient follow-up with [facility], I referred to Dr. Bess. If patient's STI panel comes back positive, we will call and treat her. Labs are negative otherwise. Patient verbalized understanding of and agrees to plan of care discharge home. Verbalized of signs and symptoms indicating need for emergent intervention <Aditi Phillip NP - Last Filed: 03/24/22 02:54> Medical Decision Making Differential Diagnosis Differential Diagnoses: The differential diagnosis associated with the presentation includes <Aditi Phillip NP - Last Filed: 03/24/22 02:54> Fibroids, ectopic, menopause, dysfunctional uterine bleeding <Aditi Phillip NP - Last Filed: 03/24/22 02:54> Admission/Observation Consideration of admission/observation: Escalation of care including admission/observation considered <Aditi Phillip NP - Last Filed: 03/24/22 02:54> If patient has acute findings, will consider admission <Aditi Phillip NP - Last Filed: 03/24/22 02:54> Lab Data MDM Lab Attestation statement: I reviewed the patient's lab results. <Aditi Phillip NP - Last Filed: 03/24/22 02:54> Result Diagrams: 03/23/22 20:31 03/23/22 20:17 <GRICELDA Vargas - Last Filed: 03/23/22 19:40> Labs: Lab Results 03/23/22 03/23/22 03/23/22 Range/Units 19:59 20:17 20:17 WBC (4.8-10.8) X10*3/uL RBC (4.20-5.50) X10*6/uL Hgb (12.0-16.0) g/dl Hct (37.0-47.0) % MCV (80.0-98.0) fL MCH (27.0-33.0) pg MCHC (31.0-35.0) g/dl RDW (11.0-16.0) % Plt Count (160-400) X10*3/uL MPV (9.4-12.3) fL Immature Gran % (Auto) (0.0-0.4) % Neut % (Auto) (45-73) % Lymph % (Auto) (20-40) % [place] % (Auto) (2-11) % Eos % (Auto) (0-4) % Baso % (Auto) (0-2) % Lymph # (Auto) (1.2-4.9) X10*3/uL [place] # (Auto) (0.1-1.2) X10*3/uL Eos # (Auto) (0.0-0.4) X10*3/uL Baso # (Auto) (0.0-0.2) X10*3/uL Abs Immat Gran (auto) (0.00-0.03) X10*3/uL Absolute Neuts (auto) (2.0-8.3) x10*3/uL Absolute Nucleated RBC (0.0-0.012) X10*3/uL Nucleated RBC % (auto) (0.0-0.2) /100WBC PT 11.5 (10.0-13.1) SEC INR 1.0 (0.9-1.1) APTT 32.8 (26.0-36.4) SEC Sodium 141 (135-145) mmol/L Potassium 4.3 (3.3-5.1) mmol/L Chloride 107 (96-108) mmol/L Carbon Dioxide 22 (22-29) mmol/L Anion Gap 16 (12-20) BUN 6 L (9-16) mg/dL Creatinine 0.69 (0.5-1.4) mg/dL Estim Creat Clear Calc 152.1 Estimated GFR > 60 Random Glucose 103 (60-115) mg/dL Calcium 9.3 D (8.4-10.2) mg/dL Magnesium 1.9 (1.6-2.6) mg/dL Total Bilirubin 0.2 (0.0-1.0) mg/dL AST 16 D (5-31) U/L ALT 9 (0-31) U/L Alkaline Phosphatase 72 (39-117) U/L Total Protein 8.0 (6.5-8.0) g/dL Albumin 4.2 (3.5-5.0) g/dL Beta HCG, Quant < 2 mIU/mL Urine Color Yellow Urine Appearance Clear Urine pH 6.0 (5.0-9.0) Ur Specific [place] <= 1.005 (1.005-1.025) Urine Protein Negative (Neg-Trace) mg/dL Urine Glucose (UA) Negative (Negative) mg/dL Urine Ketones Negative (Negative) mg/dL Urine Blood Negative (Negative) Urine Nitrite Negative (Negative) Ur Leukocyte Esterase Negative (Negative) Chlam trachomat DNA PCR (Not Detect.) N.gonorrhoeae DNA (PCR) (Not Detect.) 03/23/22 03/23/22 Range/Units 20:31 20:49 WBC 9.5 (4.8-10.8) X10*3/uL RBC 4.89 (4.20-5.50) X10*6/uL Hgb 9.0 L (12.0-16.0) g/dl Hct 31.4 L (37.0-47.0) % MCV 64.2 L (80.0-98.0) fL MCH 18.4 L (27.0-33.0) pg MCHC 28.7 L (31.0-35.0) g/dl RDW 19.4 H (11.0-16.0) % Plt Count 486 H (160-400) X10*3/uL MPV 9.7 (9.4-12.3) fL Immature Gran % (Auto) 0.2 (0.0-0.4) % Neut % (Auto) 52.7 (45-73) % Lymph % (Auto) 35.0 (20-40) % [place] % (Auto) 9.1 (2-11) % Eos % (Auto) 2.6 (0-4) % Baso % (Auto) 0.4 (0-2) % Lymph # (Auto) 3.3 (1.2-4.9) X10*3/uL [place] # (Auto) 0.9 (0.1-1.2) X10*3/uL Eos # (Auto) 0.3 (0.0-0.4) X10*3/uL Baso # (Auto) 0.0 (0.0-0.2) X10*3/uL Abs Immat Gran (auto) 0.02 (0.00-0.03) X10*3/uL Absolute Neuts (auto) 5.0 (2.0-8.3) x10*3/uL Absolute Nucleated RBC 0.000 (0.0-0.012) X10*3/uL Nucleated RBC % (auto) 0.0 (0.0-0.2) /100WBC PT (10.0-13.1) SEC INR (0.9-1.1) APTT (26.0-36.4) SEC Sodium (135-145) mmol/L Potassium (3.3-5.1) mmol/L Chloride (96-108) mmol/L Carbon Dioxide (22-29) mmol/L Anion Gap (12-20) BUN (9-16) mg/dL Creatinine (0.5-1.4) mg/dL Estim Creat Clear Calc Estimated GFR Random Glucose (60-115) mg/dL Calcium (8.4-10.2) mg/dL Magnesium (1.6-2.6) mg/dL Total Bilirubin (0.0-1.0) mg/dL AST (5-31) U/L ALT (0-31) U/L Alkaline Phosphatase (39-117) U/L Total Protein (6.5-8.0) g/dL Albumin (3.5-5.0) g/dL Beta HCG, Quant mIU/mL Urine Color Urine Appearance Urine pH (5.0-9.0) Ur Specific [place] (1.005-1.025) Urine Protein (Neg-Trace) mg/dL Urine Glucose (UA) (Negative) mg/dL Urine Ketones (Negative) mg/dL Urine Blood (Negative) Urine Nitrite (Negative) Ur Leukocyte Esterase (Negative) Chlam trachomat DNA PCR NOT DETECTED (Not Detect.) N.gonorrhoeae DNA (PCR) NOT DETECTED (Not Detect.) <GRICELDA Vargas - Last Filed: 03/23/22 19:40> Lab Results 03/23/22 03/23/22 03/23/22 Range/Units 19:59 20:17 20:17 WBC (4.8-10.8) X10*3/uL RBC (4.20-5.50) X10*6/uL Hgb (12.0-16.0) g/dl Hct (37.0-47.0) % MCV (80.0-98.0) fL MCH (27.0-33.0) pg MCHC (31.0-35.0) g/dl RDW (11.0-16.0) % Plt Count (160-400) X10*3/uL MPV (9.4-12.3) fL Immature Gran % (Auto) (0.0-0.4) % Neut % (Auto) (45-73) % Lymph % (Auto) (20-40) % [place] % (Auto) (2-11) % Eos % (Auto) (0-4) % Baso % (Auto) (0-2) % Lymph # (Auto) (1.2-4.9) X10*3/uL [place] # (Auto) (0.1-1.2) X10*3/uL Eos # (Auto) (0.0-0.4) X10*3/uL Baso # (Auto) (0.0-0.2) X10*3/uL Abs Immat Gran (auto) (0.00-0.03) X10*3/uL Absolute Neuts (auto) (2.0-8.3) x10*3/uL Absolute Nucleated RBC (0.0-0.012) X10*3/uL Nucleated RBC % (auto) (0.0-0.2) /100WBC PT 11.5 (10.0-13.1) SEC INR 1.0 (0.9-1.1) APTT 32.8 (26.0-36.4) SEC Sodium 141 (135-145) mmol/L Potassium 4.3 (3.3-5.1) mmol/L Chloride 107 (96-108) mmol/L Carbon Dioxide 22 (22-29) mmol/L Anion Gap 16 (12-20) BUN 6 L (9-16) mg/dL Creatinine 0.69 (0.5-1.4) mg/dL Estim Creat Clear Calc 152.1 Estimated GFR > 60 Random Glucose 103 (60-115) mg/dL Calcium 9.3 D (8.4-10.2) mg/dL Magnesium 1.9 (1.6-2.6) mg/dL Total Bilirubin 0.2 (0.0-1.0) mg/dL AST 16 D (5-31) U/L ALT 9 (0-31) U/L Alkaline Phosphatase 72 (39-117) U/L Total Protein 8.0 (6.5-8.0) g/dL Albumin 4.2 (3.5-5.0) g/dL Beta HCG, Quant < 2 mIU/mL Urine Color Yellow Urine Appearance Clear Urine pH 6.0 (5.0-9.0) Ur Specific [place] <= 1.005 (1.005-1.025) Urine Protein Negative (Neg-Trace) mg/dL Urine Glucose (UA) Negative (Negative) mg/dL Urine Ketones Negative (Negative) mg/dL Urine Blood Negative (Negative) Urine Nitrite Negative (Negative) Ur Leukocyte Esterase Negative (Negative) Chlam trachomat DNA PCR (Not Detect.) N.gonorrhoeae DNA (PCR) (Not Detect.) 03/23/22 03/23/22 Range/Units 20:31 20:49 WBC 9.5 (4.8-10.8) X10*3/uL RBC 4.89 (4.20-5.50) X10*6/uL Hgb 9.0 L (12.0-16.0) g/dl Hct 31.4 L (37.0-47.0) % MCV 64.2 L (80.0-98.0) fL MCH 18.4 L (27.0-33.0) pg MCHC 28.7 L (31.0-35.0) g/dl RDW 19.4 H (11.0-16.0) % Plt Count 486 H (160-400) X10*3/uL MPV 9.7 (9.4-12.3) fL Immature Gran % (Auto) 0.2 (0.0-0.4) % Neut % (Auto) 52.7 (45-73) % Lymph % (Auto) 35.0 (20-40) % [place] % (Auto) 9.1 (2-11) % Eos % (Auto) 2.6 (0-4) % Baso % (Auto) 0.4 (0-2) % Lymph # (Auto) 3.3 (1.2-4.9) X10*3/uL [place] # (Auto) 0.9 (0.1-1.2) X10*3/uL Eos # (Auto) 0.3 (0.0-0.4) X10*3/uL Baso # (Auto) 0.0 (0.0-0.2) X10*3/uL Abs Immat Gran (auto) 0.02 (0.00-0.03) X10*3/uL Absolute Neuts (auto) 5.0 (2.0-8.3) x10*3/uL Absolute Nucleated RBC 0.000 (0.0-0.012) X10*3/uL Nucleated RBC % (auto) 0.0 (0.0-0.2) /100WBC PT (10.0-13.1) SEC INR (0.9-1.1) APTT (26.0-36.4) SEC Sodium (135-145) mmol/L Potassium (3.3-5.1) mmol/L Chloride (96-108) mmol/L Carbon Dioxide (22-29) mmol/L Anion Gap (12-20) BUN (9-16) mg/dL Creatinine (0.5-1.4) mg/dL Estim Creat Clear Calc Estimated GFR Random Glucose (60-115) mg/dL Calcium (8.4-10.2) mg/dL Magnesium (1.6-2.6) mg/dL Total Bilirubin (0.0-1.0) mg/dL AST (5-31) U/L ALT (0-31) U/L Alkaline Phosphatase (39-117) U/L Total Protein (6.5-8.0) g/dL Albumin (3.5-5.0) g/dL Beta HCG, Quant mIU/mL Urine Color Urine Appearance Urine pH (5.0-9.0) Ur Specific [place] (1.005-1.025) Urine Protein (Neg-Trace) mg/dL Urine Glucose (UA) (Negative) mg/dL Urine Ketones (Negative) mg/dL Urine Blood (Negative) Urine Nitrite (Negative) Ur Leukocyte Esterase (Negative) Chlam trachomat DNA PCR NOT DETECTED (Not Detect.) N.gonorrhoeae DNA (PCR) NOT DETECTED (Not Detect.) <Aditi Phillip NP - Last Filed: 03/24/22 02:54> External Record Review External record reviewed: Outpatient record <Aditi Phillip NP - Last Filed: 03/24/22 02:54> Discharge Plan Discharge Clinical Impression: Vaginal bleeding <GRICELDA Vargas - Last Filed: 03/23/22 19:40> Patient Disposition: Home, Self-Care <GRICELDA Vargas - Last Filed: 03/23/22 19:40> Instructions: Dysfunctional Uterine Bleeding (ED) <GRICELDA Vargas - Last Filed: 03/23/22 19:40> Additional Instructions: You were evaluated for abnormal uterine bleeding. Your test is negative. Your cultures are pending. Your physical exam was within normal limits. If your lab results are positive, we will call in the appropriate medications for you. Please follow-up with your primary care physician and or [facility] for follow-up. Thank you for choosing this emergency department for evaluation. Please follow-up with primary care physician as needed. Return to the emergency department for any new, concerning, or worsening symptoms. <GRICELDA Vargas - Last Filed: 03/23/22 19:40> Prescriptions: No Action ferrous fumarate 324 mg (106 mg iron) tablet 324 mg PO DAILY Qty: 30 2RF ascorbic acid (vitamin C) 500 mg tablet 500 mg PO DAILY Qty: 30 2RF Rx Instructions: take with iron cholecalciferol (vitamin D3) 25 mcg (1,000 unit) capsule 25 mcg PO DAILY Qty: 30 5RF zinc 50 mg tablet 15 mg PO DAILY Qty: 30 0RF vitamin A 10,000 unit capsule 10,000 unit PO DAILY Qty: 30 0RF mecobalamin (vitamin B12) 1,000 mcg tablet,disintegrating 1,000 mcg PO DAILY Qty: 30 5RF epinephrine [EpiPen 2-Pal] 0.3 mg/0.3 mL auto-injector 0.3 mg IM Q10M PRN (Reason: anaphylaxis) Qty: 1 0RF Rx Instructions: for 2 doses diphenhydramine HCl [Benadryl] 25 mg capsule 25 mg PO Q6H PRN (Reason: allergic reaction) Qty: 14 0RF famotidine [Pepcid] 20 mg tablet 20 mg PO BID 14 Days Qty: 28 0RF acetaminophen [Tylenol Extra Strength] 500 mg tablet 500 mg PO Q6H PRN (Reason: fever or pain) Qty: 14 0RF lidocaine [Lidoderm] 5 % adhesive patch,medicated 1 patch topical DAILY MDD remove after 12 hours PRN (Reason: pain) Qty: 30 0RF Rx Instructions: leave on most painful area for up to 12 hrs cyclobenzaprine 5 mg tablet 5 mg PO Q8H PRN (Reason: pain (scale score 7-10)) 5 Days Qty: 14 0RF hydroxyzine pamoate 50 mg capsule 50 mg PO BEDTIME sertraline 50 mg tablet 50 mg PO DAILY <GRICELDA Vargas - Last Filed: 03/23/22 19:40> Referrals: Riaz Bess MD [Physician] - 2 weeks (Abnormal uterine bleeding) <GRICELDA Vargas - Last Filed: 03/23/22 19:40> Interventions: ED Discharge Assessment Last Done: 03/23/22 21:56 <GRICELDA Vargas - Last Filed: 03/23/22 19:40> Discharge Date/Time: 03/23/22 21:56 <GRICELDA Vargas - Last Filed: 03/23/22 19:40>
--- NOTE | 2022-03-23 19:56 | PC.NURSE ---
Assumed care for pt. Pt aox3. Breaths are even and unlabored with equal chest rises. Cough present. Pt placed on airborne precaution due to ?tuberculosis infection. T-spot ordered. Per Flakita, from the lab dept, T-spot specimen to be collected on Friday as these tests are sent out to [facility] and done during the week. No apparent distress noted. Pt is waiting for a bed assignment and aware of plan of care. Will continue to monitor.
[2022-03-23 20:06] LABS: Appearance Urine Clear; Color Urine Yellow; Glucose Urine UA Negative (Negative); Leukocyte Esterase Urine Negative (Negative); Nitrite Urine Negative (Negative); Specific Gravity - Urine <= 1.005 (1.005-1.025); Urine Blood Negative (Negative); Urine Ketones Negative (Negative); Urine Protein Negative (Neg-Trace)
[2022-03-23 20:33] LABS: Prothrombin Time 11.5 SEC (10.0-13.1)
[2022-03-23 20:35] LABS: Partial Thromboplastin Time 32.8 SEC (26.0-36.4)
[2022-03-23 20:36] LABS: Alanine Aminotransferase 9 U/L (0-31); Albumin Level 4.2 g/dL (3.5-5.0); Alkaline Phosphatase 72 U/L (39-117); Anion Gap 16 (12-20); Aspartate Amino Transferase 16 U/L (5-31); Bilirubin Total 0.2 mg/dL (0.0-1.0); Blood Urea Nitrogen 6 mg/dL (9-16); Calcium 9.3 mg/dL (8.4-10.2); Carbon Dioxide 22 mmol/L (22-29); Chloride 107 mmol/L (96-108); Creatinine Clr Calc Pharmacy 152.1; Estimated Glomerular Filt Rate > 60; Glucose Random 103 mg/dL (60-115); Magnesium 1.9 mg/dL (1.6-2.6); Potassium 4.3 mmol/L (3.3-5.1); Sodium 141 mmol/L (135-145)
[2022-03-23 20:36] LABS: Basophils Percent Auto 0.4 % (0-2); Eosinophils Absolute Auto 0.3 X10*3/uL (0.0-0.4); Eosinophils Percent Auto 2.6 % (0-4); Hematocrit 31.4 % (37.0-47.0); Imm Gran Abs Auto 0.02 X10*3/uL (0.00-0.03); Imm Gran Pct Auto 0.2 % (0.0-0.4); Lymphocytes Absolute Auto 3.3 X10*3/uL (1.2-4.9); MANUAL DIFF FLAG NO; Mean Corpuscular HGB Conc 28.7 g/dl (31.0-35.0); Mean Corpuscular Hemoglobin 18.4 pg (27.0-33.0); Mean Platelet Volume 9.7 fL (9.4-12.3); Monocytes Absolute Auto 0.9 X10*3/uL (0.1-1.2); Monocytes Percent Auto 9.1 % (2-11); Neutrophils Percent Auto 52.7 % (45-73); Platelet Count 486 X10*3/uL (160-400); Red Blood Count 4.89 X10*6/uL (4.20-5.50); Red Cell Distribution Width 19.4 % (11.0-16.0); White Blood Count 9.5 X10*3/uL (4.8-10.8)
[2022-03-23 20:42] LABS: HCG Quantitative < 2 mIU/mL
[2022-03-23 20:42] LABS: Mean Corpuscular Volume 64.2 fL (80.0-98.0)
[2022-03-24 01:58] LABS: CT PCR NOT DETECTED (Not Detect.); NG PCR NOT DETECTED (Not Detect.)
[2022-03-25 08:44] LABS: BV Int Neg Control Negative (Negative); BV Int Pos Control Positive (Positive)
== END 2022-03-23 21:56 | disposition home or self-care (01) ==
PROVIDERS: Nurse Practitioner Family; Physician Assistant Medical; Emergency Provider Emergency Medicine; PCP Internal Medicine
DX: N93.8 Other specified abnormal uterine and vaginal bleeding (principal); N76.0 Acute vaginitis; R05.9 Cough, unspecified; E66.01 Morbid (severe) obesity due to excess calories; Z68.42 Body mass index [BMI] 45.0-49.9, adult
CPT/HCPCS: 0353U; 36415; 80053; 81003; 83735; 84702; 85025; 85610; 85730; 87480; 87510; 87660; 99282; 99284

== ENCOUNTER 2023-06-17 09:35 | Emergency (ER) | payer OTHER, SELFPAY ==
--- NOTE | ~2023-06-17 | XR_ITS ---
EXAMINATION: XR KNEE, RIGHT CLINICAL INFORMATION: Pain and swelling. COMPARISON: None available. TECHNIQUE: Four views of the right knee. FINDINGS: There is loss of medial and patellofemoral compartment joint space with mild periarticular spurring in medial compartment. No visible acute fracture, dislocation or subluxation seen. The soft tissues are normal. XR/XR knee RT 3V IMPRESSION: Mild degenerative changes medial and patellofemoral compartment. No visible acute fracture or dislocation seen.
[2023-06-17 10:08] VITALS: BP 159/63; PULSE 71; RESP 16; TEMP 37; O2SAT 100; BMI 48.1
--- NOTE | 2023-06-17 12:18 | ED.EXTPRO ---
HPI - Extremity Problem General Chief complaint: Extremity Problem Stated complaint: R Knee Pain Burning No Injury Time Seen by Provider: 06/17/23 10:51 Source: patient and RN notes reviewed Mode of arrival: ambulatory Limitations: no limitations History of Present Illness HPI Narrative: This is a 38-year-old female, with a history of depression, obesity, who presents emergency department with complaints of right knee pain x2 weeks. Patient denies any recent trauma or injury. Denies prolonged walking. She states that over the course of the last 2 weeks she has been having worsening pain. She states that she has been using mental patches without any relief. Reports that the pain worsens with bending. She denies any fevers, chills, chest pain, shortness of breath, abdominal pain,, vomiting or diarrhea. Denies history of knee problems in the past. No calf pain. No other complaints or concerns at this time. MD Complaint: extremity pain and extremity swelling Pain Consistency: constant Location: right and knee Quality: aching Radiation: none Relieving factors: immobilization Exacerbating factors: range of motion, weight bearing and walking Associated symptoms: denies other symptoms Related Data Home Medications Medication Instructions Recorded Confirmed hydroxyzine pamoate 50 mg capsule 50 mg PO BEDTIME 02/15/20 03/08/20 sertraline 50 mg tablet 50 mg PO DAILY 02/15/20 03/08/20 Previous Rx's Medication Instructions Recorded ascorbic acid (vitamin C) 500 mg 500 mg PO DAILY #30 tabs 02/15/20 tablet ferrous fumarate 324 mg (106 mg 324 mg PO DAILY #30 tabs 02/15/20 iron) tablet cholecalciferol (vitamin D3) 25 25 mcg PO DAILY #30 caps 02/21/20 mcg (1,000 unit) capsule zinc 50 mg tablet 15 mg (0.3 x 50 mg) PO DAILY #30 02/21/20 tabs diphenhydramine HCl 25 mg capsule 25 mg PO Q6H PRN allergic reaction 02/23/20 (Benadryl) #14 caps epinephrine 0.3 mg/0.3 mL 0.3 mg (0.3 mL) IM Q10M PRN 02/23/20 injection, auto-injector (EpiPen anaphylaxis #1 ea 2-Pal) famotidine 20 mg tablet (Pepcid) 20 mg PO BID 14 days #28 tabs 02/23/20 mecobalamin (vitamin B12) 1,000 1,000 mcg PO DAILY #30 tabs 02/23/20 mcg disintegrating tablet,sublingual vitamin A 3,000 mcg (10,000 unit) 10,000 unit PO DAILY #30 caps 02/23/20 capsule acetaminophen 500 mg tablet 500 mg PO Q6H PRN fever or pain 12/18/21 (Tylenol Extra Strength) #14 tabs cyclobenzaprine 5 mg tablet 5 mg PO Q8H PRN pain (scale score 12/18/21 7-10) 5 days #14 tabs lidocaine 5 % topical patch 1 patch topical DAILY PRN pain #30 12/18/21 (Lidoderm) ea metronidazole 500 mg tablet 500 mg PO Q8H 7 days #21 tabs 03/25/22 acetaminophen 650 mg 650 mg PO Q8H PRN pain #30 tabs 06/17/23 tablet,extended release (Tylenol 8 Hour) Allergies Allergy/AdvReac Type Severity Reaction Status Date / Time calcium Allergy Severe swollen Verified 03/23/22 19:43 NSAIDS (Non-Steroidal Allergy Severe Angioedema Verified 03/23/22 19:43 Anti-Inflamma oyster extract Allergy Severe swollen Verified 03/23/22 19:43 ibuprofen Allergy Swelling Verified 03/23/22 19:43 amoxicillin Allergy Unknown DISCHARGE Uncoded 03/23/22 19:43 Review of Systems Review of Systems: Yes all other systems are reviewed and are negative Constitutional: Constitutional: Reports as per [facility] Past Medical History Medical History Depression Morbid obesity Surgical History Hx of section Hx of tubal ligation Family History Family History Father Hypertension Hip pain Mother Hypertension Diabetes mellitus Acute depression Brother No problems noted. Brother No problems noted. Sister No problems noted. Sister No problems noted. Son No problems noted. Son No problems noted. Daughter No problems noted. Social History Social History Alcohol intake: never Advance Directives: No Physical Exam Vital Signs: Vital Signs: Last Vital Signs Temp 98.6 F 06/17/23 10:08 Pulse 71 06/17/23 10:08 Resp 16 06/17/23 10:08 BP 159/63 H 06/17/23 10:08 Pulse Ox 100 06/17/23 10:08 O2 Del Method Room Air 06/17/23 10:08 BMI result Body Mass Index 48.1 Const: General: cooperative, comfortable and no acute distress Orientation/consciousness: patient oriented x3 Limitations: no limitations HEENT: Head: Yes normal to inspection, Yes normocephalic and Yes atraumatic Ears: hearing grossly normal bilaterally General nose exam: Normal external nose present Face and sinus: Yes normal facial exam Mouth: Normal oral and palatal mucosa present, oropharynx normal and moist mucous membranes Throat: Yes posterior oropharynx normal Eyes: General: appearance normal, both eyes and all related structures Eyelids: Yes eyelids normal Conjunctivae: conjunctivae normal Sclerae: sclerae normal Pupils: Equal, round and reactive pupils present EOM: EOMs intact bilaterally Neck: Neck: Yes normal visual inspection, Yes full ROM and Yes no lymphadenopathy Lymphatic: no lymphadenopathy noted Chest: Chest palpation & inspection: normal inspection of the chest Resp: Effort & Inspection: normal respiratory effort and able to speak in complete sentences Auscultation: clear to auscultation bilaterally, no crackles, no rales, no rhonchi and no wheezes Cardio: Rate: regular rate Rhythm: regular rhythm Heart sounds: S1 normal heart sound present and S2 normal heart sound present GI: Inspection: Yes normal to inspection Skin: General skin exam: no rashes or lesions noted Trauma: no lacerations or abrasions Wounds: no wounds Neuro: General: patient oriented x3 and moves all extremities Cranial nerves: Yes Equal, round and reactive pupils present Extrem: Other: Right knee with no bony abnormality, swelling, erythema or warmth. Full range of motion of the knee. Mild tenderness palpation in the medial and lateral joint lines. No joint laxity with varus and valgus strain. Negative anterior-posterior drawer test. No calf tenderness. No edema appreciated. General: Yes normal to inspection Right upper extremity: normal to inspection Left upper extremity: normal to inspection Right lower extremity: normal to inspection Left lower extremity: normal to inspection Medical Decision Making Medical Decision Making MDM Narrative: This is a 38-year-old female, with a history of depression and morbid obesity, who presents to the emergency department with complaints of right knee pain x2 weeks. No recent trauma or injury. Patient is ambulatory with steady gait. Blood pressure mildly elevated at 150 9/63, she is asymptomatic, no chest pain or shortness of breath, dizziness or headaches. Patient reports that over the last 2 weeks she has been trying [id number] menthol patches which only causes worsening pain. Denies history of similar symptoms in the past. Patient has mild tenderness palpation in the medial and lateral joint line. Differential diagnoses include internal ligamentous derangement, fracture, osteoarthritis, patellofemoral syndrome, dislocation-unlikely, fracture-unlikely, septic arthritis-unlikely, DVT-unlikely. X-ray was obtained revealing degenerative changes, without any obvious bony abnormality. Discussed findings with patient. Patient has an allergy to NSAIDs therefore she will be treated with Tylenol. Educated the importance of following up with Orthopedics as they can better manage her pain and symptoms with physical therapy or any additional testing. She understands and agrees with plan. Patient given return precautions. Patient stable for discharge. Differential Diagnosis Differential Diagnoses: The differential diagnosis associated with the presentation includes See above Independent Interpretation I performed an independent interpretation of an: Plain X-Ray Interpretation: I reviewed the x-ray and agree with radiology report. Radiology Impression Discussion of test interpretation with radiology: I have reviewed the radiologist's reading. Radiologist Impression: FINDINGS: There is loss of medial and patellofemoral compartment joint space with mild periarticular spurring in medial compartment. No visible acute fracture, dislocation or subluxation seen. The soft tissues are normal. XR/XR knee RT 3V IMPRESSION: Mild degenerative changes medial and patellofemoral compartment. No visible acute fracture or dislocation seen. Dictated By: Sloan Mccallum MD Discharge Plan Discharge Clinical Impression: Knee pain, right Qualifiers: Chronicity: acute Qualified Code(s): M25.561 - Pain in right knee Patient Disposition: Home, Self-Care Instructions: Knee Pain (ED) Additional Instructions: You were seen in the emergency department due to right knee pain. Your x-ray of your knee shows degenerative changes, also known as arthritis. Please rest, ice, elevate your leg as needed. Tylenol as directed will also help with inflammation. Follow-up with orthopedics as they can further assist you in treatment for your symptoms. Call to make an appointment. If any new or worsening symptoms occur including but not limited to worsening pain, calf pain, leg swelling, chest pain, shortness of breath, please return for re-evaluation. Prescriptions: New acetaminophen [Tylenol 8 Hour] 650 mg tablet extended release 650 mg PO Q8H PRN (Reason: pain) Qty: 30 0RF No Action ferrous fumarate 324 mg (106 mg iron) tablet 324 mg PO DAILY Qty: 30 2RF ascorbic acid (vitamin C) 500 mg tablet 500 mg PO DAILY Qty: 30 2RF Rx Instructions: take with iron cholecalciferol (vitamin D3) 25 mcg (1,000 unit) capsule 25 mcg PO DAILY Qty: 30 5RF zinc 50 mg tablet 15 mg PO DAILY Qty: 30 0RF vitamin A 10,000 unit capsule 10,000 unit PO DAILY Qty: 30 0RF mecobalamin (vitamin B12) 1,000 mcg tablet,disintegrating 1,000 mcg PO DAILY Qty: 30 5RF epinephrine [EpiPen 2-Pal] 0.3 mg/0.3 mL auto-injector 0.3 mg IM Q10M PRN (Reason: anaphylaxis) Qty: 1 0RF Rx Instructions: for 2 doses diphenhydramine HCl [Benadryl] 25 mg capsule 25 mg PO Q6H PRN (Reason: allergic reaction) Qty: 14 0RF famotidine [Pepcid] 20 mg tablet 20 mg PO BID 14 Days Qty: 28 0RF acetaminophen [Tylenol Extra Strength] 500 mg tablet 500 mg PO Q6H PRN (Reason: fever or pain) Qty: 14 0RF lidocaine [Lidoderm] 5 % adhesive patch,medicated 1 patch topical DAILY MDD remove after 12 hours PRN (Reason: pain) Qty: 30 0RF Rx Instructions: leave on most painful area for up to 12 hrs cyclobenzaprine 5 mg tablet 5 mg PO Q8H PRN (Reason: pain (scale score 7-10)) 5 Days Qty: 14 0RF metronidazole 500 mg tablet 500 mg PO Q8H 7 Days Qty: 21 0RF hydroxyzine pamoate 50 mg capsule 50 mg PO BEDTIME sertraline 50 mg tablet 50 mg PO DAILY [place] [facility] [place] [facility] [place] Group]
[2023-06-17 12:33] VITALS: BP 129/66; PULSE 66; RESP 18; TEMP 36.7; O2SAT 100
== END 2023-06-17 12:34 | disposition home or self-care (01) ==
PROVIDERS: Emergency Provider Emergency Medicine
DX: M25.561 Pain in right knee (principal)
CPT/HCPCS: 73562; 99282; 99283

== ENCOUNTER 2024-01-27 08:15 | Emergency (ER) | payer OTHER, SELFPAY ==
--- NOTE | ~2024-01-27 | XR_ITS ---
EXAMINATION: XR KNEE, RIGHT CLINICAL INFORMATION: Pain. COMPARISON: X-ray dated June 17, 2023 TECHNIQUE: Four views of the right knee. FINDINGS: Decreased asymmetric joint space narrowing involving mostly the medial compartment. Sclerosis in the medial tibial plateau. No acute cortical disruption or malalignment. No suprapatellar bursa joint effusion. There is a well-corticated calcification in the popliteal region. Vascular calcifications. XR/XR knee RT 2V IMPRESSION: Medial compartment osteoarthrosis. No acute fracture or listhesis. Electronically signed by: Bebeto Pandya MD 01/27/2024 09:02 AM [facility]
[2024-01-27 08:26] VITALS: BP 123/64; PULSE 70; RESP 18; TEMP 36.2; O2SAT 100; BMI 47.1
--- NOTE | 2024-01-27 11:35 | ED_ITS ---
HPI - Extremity Injury (Lower) General Chief Complaint: Extremity Injury, Lower Stated Complaint: R knee pain Time Seen by Provider: 01/27/24 11:34 Source: patient and RN notes reviewed Mode of arrival: ambulatory Limitations: no limitations History of Present Illness ED Provider: Caro Wilkins PA-C HPI Narrative: This is a 38-year-old female who presents emergency department with complaints of right knee pain for the last month. Patient reports that she has had ongoing left knee pain without any trauma or injury to her knee. She was seen by her primary care physician and was told zayra t she had bursitis, and was given a knee brace which he has been using with minimal relief. She has been taking [id number] Tylenol and Motrin with minimal relief. She denies any calf pain. No other complaints or concerns at this time. Onset (ago): month(s) Severity: moderate Relieving factors: nothing Exacerbating factors: weight bearing, movement and palpation Other symptoms: none Related Data Home Medications ?Medication ?Instructions ?Recorded ?Confirmed hydroxyzine pamoate 50 mg capsule 50 mg PO BEDTIME 02/15/20 03/08/20 sertraline 50 mg tablet 50 mg PO DAILY 02/15/20 03/08/20 Previous Rx's ?Medication ?Instructions ?Recorded ascorbic acid (vitamin C) 500 mg 500 mg PO DAILY #30 tabs 02/15/20 tablet ferrous fumarate 324 mg (106 mg 324 mg PO DAILY #30 tabs 02/15/20 iron) tablet cholecalciferol (vitamin D3) 25 25 mcg PO DAILY #30 caps 02/21/20 mcg (1,000 unit) capsule zinc 50 mg tablet 15 mg (0.3 x 50 mg) PO DAILY #30 02/21/20 tabs diphenhydramine HCl 25 mg capsule 25 mg PO Q6H PRN allergic reaction 02/23/20 (Benadryl) #14 caps epinephrine 0.3 mg/0.3 mL 0.3 mg (0.3 mL) IM Q10M PRN 02/23/20 injection, auto-injector (EpiPen anaphylaxis #1 ea 2-Pal) famotidine 20 mg tablet (Pepcid) 20 mg PO BID 14 days #28 tabs 02/23/20 mecobalamin (vitamin B12) 1,000 1,000 mcg PO DAILY #30 tabs 02/23/20 mcg disintegrating tablet,sublingual vitamin A 3,000 mcg (10,000 unit) 10,000 unit PO DAILY #30 caps 02/23/20 capsule acetaminophen 500 mg tablet 500 mg PO Q6H PRN fever or pain 12/18/21 (Tylenol Extra Strength) #14 tabs cyclobenzaprine 5 mg tablet 5 mg PO Q8H PRN pain (scale score 12/18/21 7-10) 5 days #14 tabs lidocaine 5 % topical patch 1 patch topical DAILY PRN pain #30 12/18/21 (Lidoderm) ea metronidazole 500 mg tablet 500 mg PO Q8H 7 days #21 tabs 03/25/22 acetaminophen 650 mg 650 mg PO Q8H PRN pain #30 tabs 06/17/23 tablet,extended release (Tylenol 8 Hour) Allergies Allergy/AdvReac Type Severity Reaction Status Date / Time calcium Allergy Severe swollen Verified 01/27/24 08:27 NSAIDS (Non-Steroidal Allergy Severe Angioedema Verified 01/27/24 08:27 Anti-Inflamma oyster extract Allergy Severe swollen Verified 01/27/24 08:27 ibuprofen Allergy Swelling Verified 01/27/24 08:27 amoxicillin Allergy Unknown DISCHARGE Uncoded 03/23/22 19:43 Review of Systems Review of Systems: Yes all other systems are reviewed and are negative Constitutional: Constitutional: Reports as per [facility] Past Medical History Medical History Depression Morbid obesity Surgical History Hx of section Hx of tubal ligation Family History Family History Father Hypertension Hip pain Mother Hypertension Diabetes mellitus Acute depression Brother No problems noted. Brother No problems noted. Sister No problems noted. Sister No problems noted. Son No problems noted. Son No problems noted. Daughter No problems noted. Social History Social History Alcohol intake: never Physical Exam Vital Signs: Vital Signs: Last Vital Signs Temp 97.2 F 01/27/24 08:26 Pulse 70 01/27/24 08:26 Resp 18 01/27/24 08:26 BP 123/64 01/27/24 08:26 Pulse Ox 100 01/27/24 08:26 O2 Del Method Room Air 01/27/24 08:26 BMI result Body Mass Index 47.1 Const: General: cooperative, comfortable and no acute distress Orientation/consciousness: patient oriented x3 Limitations: no limitations HEENT: Head: Yes normal to inspection, Yes normocephalic and Yes atraumatic Ears: hearing grossly normal bilaterally General nose exam: Normal external nose present Face and sinus: Yes normal facial exam Mouth: Normal oral and palatal mucosa present, oropharynx normal and moist mucous membranes Throat: Yes posterior oropharynx normal Eyes: General: appearance normal, both eyes and all related structures Eyelids: Yes eyelids normal Conjunctivae: conjunctivae normal Sclerae: sclerae normal Pupils: Equal, round and reactive pupils present EOM: EOMs intact bilaterally Neck: Neck: Yes normal visual inspection, Yes full ROM and Yes no lymphadenopathy Lymphatic: no lymphadenopathy noted Chest: Chest palpation & inspection: normal inspection of the chest Resp: Effort & Inspection: normal respiratory effort and able to speak in complete sentences Auscultation: clear to auscultation bilaterally, no crackles, no rales, no rhonchi and no wheezes Cardio: Rate: regular rate Rhythm: regular rhythm Heart sounds: S1 normal heart sound present and S2 normal heart sound present GI: Inspection: Yes normal to inspection Skin: General skin exam: no rashes or lesions noted Trauma: no lacerations or abrasions Wounds: no wounds Neuro: General: patient oriented x3 and moves all extremities Cranial nerves: Yes Equal, round and reactive pupils present Extrem: Other: Right knee with tenderness palpation along the medial and lateral joint line. There is no obvious bony deformity or swelling. Full range of motion of the knee without difficulty. Reported pain with varus and valgus strain, no joint laxity. No calf tenderness. General: Yes normal to inspection Right upper extremity: normal to inspection Left upper extremity: normal to inspection Right lower extremity: normal to inspection Left lower extremity: normal to inspection Medical Decision Making Medical Decision Making MDM Narrative: This is a 38-year-old female who presents emergency department with complaints of right knee pain for the last month. On arrival, vital signs within normal limits. She is speaking in full sentences under no acute distress. Left knee with tenderness palpation along the medial and lateral joint line. She has full range of motion of the knee, no evidence of erythema, warmth, or septic arthritis. X-rays were performed revealing medial compartment osteoarthrosis, discussed findings with patient. She will follow-up with orthopedics outpatient. Given strict return precautions. She already has a knee brace at home which she can utilize if she finds that this can provide her relief. Advised to alternate between ibuprofen and Tylenol. Given strict return precautions, she is ambulatory with steady gait. Patient stable for discharge. Differential Diagnosis Differential Diagnoses: The differential diagnosis associated with the presentation includes Strain, sprain, contusion, arthritis Independent Interpretation I performed an independent interpretation of an: Plain X-Ray Interpretation: I reviewed the x-ray and agree with the radiology report. Radiology Impression Discussion of test interpretation with radiology: I have reviewed the radiologist's reading. Radiologist Impression: XR/XR knee RT 2V IMPRESSION: Medial compartment osteoarthrosis. No acute fracture or listhesis. Electronically signed by: Bebeto Pandya MD 01/27/2024 09:02 AM [facility] Dictated By: Bebeto Canales MD Discharge Plan Discharge Clinical Impression: Knee pain, left Patient Disposition: Home, Self-Care Instructions: Knee Pain (ED) Additional Instructions: You were seen in the emergency department due to left knee pain. Your x-ray shows evidence of arthritis. Please continue performing gentle [id number] exercises, using you were knee brace if you found that this was helpful, alternating between ibuprofen and Tylenol as needed for pain. Please follow-up with the migration specialist as they can refer you to physical therapy, as well as further manage your pain. If any new or worsening symptoms occur including but not limited to severe calf pain, increased pain and swelling in the knee, please seek emergent care. Prescriptions: No Action ferrous fumarate 324 mg (106 mg iron) tablet 324 mg PO DAILY Qty: 30 2RF ascorbic acid (vitamin C) 500 mg tablet 500 mg PO DAILY Qty: 30 2RF Rx Instructions: take with iron cholecalciferol (vitamin D3) 25 mcg (1,000 unit) capsule 25 mcg PO DAILY Qty: 30 5RF zinc 50 mg tablet 15 mg PO DAILY Qty: 30 0RF vitamin A 10,000 unit capsule 10,000 unit PO DAILY Qty: 30 0RF mecobalamin (vitamin B12) 1,000 mcg tablet,disintegrating 1,000 mcg PO DAILY Qty: 30 5RF epinephrine [EpiPen 2-Pal] 0.3 mg/0.3 mL auto-injector 0.3 mg IM Q10M PRN (Reason: anaphylaxis) Qty: 1 0RF Rx Instructions: for 2 doses diphenhydramine HCl [Benadryl] 25 mg capsule 25 mg PO Q6H PRN (Reason: allergic reaction) Qty: 14 0RF famotidine [Pepcid] 20 mg tablet 20 mg PO BID 14 Days Qty: 28 0RF acetaminophen [Tylenol Extra Strength] 500 mg tablet 500 mg PO Q6H PRN (Reason: fever or pain) Qty: 14 0RF lidocaine [Lidoderm] 5 % adhesive patch,medicated 1 patch topical DAILY MDD remove after 12 hours PRN (Reason: pain) Qty: 30 0RF Rx Instructions: leave on most painful area for up to 12 hrs cyclobenzaprine 5 mg tablet 5 mg PO Q8H PRN (Reason: pain (scale score 7-10)) 5 Days Qty: 14 0RF metronidazole 500 mg tablet 500 mg PO Q8H 7 Days Qty: 21 0RF acetaminophen [Tylenol 8 Hour] 650 mg tablet extended release 650 mg PO Q8H PRN (Reason: pain) Qty: 30 0RF hydroxyzine pamoate 50 mg capsule 50 mg PO BEDTIME sertraline 50 mg tablet 50 mg PO DAILY Referrals: [facility] [place] [facility] [Provider Group] Print Language: Italian
[2024-01-27 11:54] VITALS: BP 123/64; PULSE 70; RESP 18; TEMP 36.2; O2SAT 100
== END 2024-01-27 11:54 | disposition home or self-care (01) ==
PROVIDERS: Emergency Provider Emergency Medicine
DX: M25.561 Pain in right knee (principal)
CPT/HCPCS: 73560; 99282; 99283

== ENCOUNTER → 2024-01-27 08:45 | Outpatient (BNV) | payer OTHER, SELFPAY | PROVIDERS: Visit Provider Radiology Diagnostic Radiology | DX: M25.561 Pain in right knee (principal) | CPT/HCPCS: 73560 ==

== ENCOUNTER 2024-02-20 10:06 | Outpatient (AMB) | payer OTHER, SELFPAY ==
--- NOTE | 2024-02-20 10:18 | A.OFFVIS_ITS ---
Vital Signs 02/20/24 10:27 Height 5 ft 6 in Weight 291 lb BMI 47.0 Intake Visit Reasons: RT knee pain Intake Note: Jessica 38 year old female who presents today for a new patient evaluation of left knee pain. Patient was seen at [facility] ER due to right knee pain for over a month. She was seen by her PCP who prescribed a knee brace and referred to orthopedics. She discontinue use of brace, due to brace fitting correctly on her thigh. Patient reports having pain with bending due to swelling in her knee. She describes her pain as a sharp and burning sensation. Finds no relief with Lidocaine patch no relief. No injury. No previous tx. Allergies calcium Allergy (Severe, Verified 02/20/24 10:34) swollen NSAIDS (Non-Steroidal Anti-Inflamma Allergy (Severe, Verified 02/20/24 10:34) Angioedema oyster extract Allergy (Severe, Verified 02/20/24 10:34) swollen ibuprofen Allergy (Verified 02/20/24 10:34) Swelling amoxicillin Allergy (Unknown, Uncoded 02/20/24 10:34) DISCHARGE Medication List - Last Reconciled 02/20/24 by Ludy Bose PA-C acetaminophen ER (Tylenol 8 Hour) 650 mg PO Q8H PRN ascorbic acid (vitamin C) 500 mg PO DAILY diphenhydramine HCl (Benadryl) 25 mg PO Q6H PRN epinephrine (EpiPen 2-Pal) 0.3 mg (0.3 mL) IM Q10M PRN famotidine (Pepcid) 20 mg PO BID 14 days ferrous fumarate 324 mg PO DAILY sertraline 50 mg PO DAILY HPI HPI RT knee pain: Details: 38-year-old female who presents to the office today for an evaluation of left knee pain for over a month. She denies any injury to her left knee. She was seen at ER due to her pain. She was also seen by her PCP who prescribed a knee brace and referred her to our office however she discontinued the brace due to fitting issues. She currnetly states she has swelling as well as sharp and burning pain in her left knee that is aggravated with bending. She has tried lidocaine patches with no relief. She has not had any treatment in the past. [facility] Medical History Depression Morbid obesity Surgical History Hx of tubal ligation Hx of section Family History Father Hypertension Hip pain Mother Hypertension Diabetes mellitus Acute depression Brother No problems noted. Brother No problems noted. Sister No problems noted. Sister No problems noted. Son No problems noted. Son No problems noted. Daughter No problems noted. 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 Review of Systems Const All systems reviewed & are unremarkable except as noted in HPI and below Physical Exam Vital Signs: BMI result Body Mass Index 47.0 Const General: cooperative, healthy appearing, comfortable, no acute distress, well developed and alert Orientation/consciousness: patient oriented x3 HEENT Head: Yes normal to inspection, Yes normocephalic and Yes atraumatic Eyes General: appearance normal, both eyes and all related structures Resp Effort & Inspection: normal respiratory effort and able to speak in complete sentences Cardio Rate: regular rate Peripheral pulses: Peripheral pulses 2+ throughout GI Palpation (GI): Soft to palpation Skin Lesions: no lesions Rashes: no rashes Neuro General: patient oriented x3 Extrem Other: Right knee: Skin intact, no erythema or joint effusion. Lateral retropatellar tenderness present along with tenderness along the medial joint line. Full ROM with crepitus. Negative Eileen?s. No ligamentous laxity. NVI. Office Procedures AMB Joint Injection/Aspiration Joint Injection/Aspiration Primary Site: right knee Prep: site was prepped using aseptic technique, ethochloride spray was applied and injection warnings given Injected: 80 mg of, DepoMedrol, with 8 mL of, 1% plain lidocaine and in the joint Approach Used: anterolateral Procedure: The patient tolerated the procedure well and there was some relief with the local anesthesia Coding 11624 - Glenohumeral/Tronchanteric Bursa/Intraarticular Procedure code (CPT) selection complete Results Reviewed Results Reviewed: Xrays were obtained in the office today and personally reviewed by me of the right knee Assessment & Plan Assessment & Plan (1) Osteoarthritis of right knee: Code(s): M17.11 - Unilateral primary osteoarthritis, right knee Category: Medical Plan We discussed options today, which include steroid injection. The patient did consent to move forward with the right knee injection, which was tolerated well. I recommended rest, ice, and elevation and OTC anti-inflammatories as needed for discomfort. She was also referred to a course of physical therapy in the office today. If symptoms persist or worsens over the next 6-8 weeks, patient will contact the office, otherwise follow-up as needed. Orders: Orders XR knee LT 2V Today M25.562 - Pain in left knee XR knee RT 1V Today M25.561 - Pain in right knee XR knee RT 2V Today M25.569 - Pain in unspecified knee XR knee LT 1V Today M25.562 - Pain in left knee Patient Instructions: Scribed for Ludy Bose PA-C, by Miguel A Kiser medical receptionist biller, on 02/20/2024 at 10:00 AM EST.? I, Ludy Bose PA-C, have personally reviewed and agree with the information entered by the scribe. Coding Level of Care Code New Pt Level 3 (99811) Complex EM visit Add On G2211 Diagnoses Osteoarthritis of right knee M17.11 CPT Codes Coding - Joint 7: 18228 - Glenohumeral/Tronchanteric Bursa/Intraarticular ([id number])
[2024-02-20 10:27] VITALS: BMI 47.0
== END 2024-02-20 11:36 | disposition home or self-care (01) ==
PROVIDERS: Visit Provider Physician Assistant
DX: M17.11 Unilateral primary osteoarthritis, right knee (principal)
CPT/HCPCS: 20610; 99203

== ENCOUNTER 2024-02-20 10:12 | Outpatient (REF) | payer OTHER, SELFPAY | END 2024-02-20 10:13 | disposition home or self-care (01) | LOC: HO.HOSX 10:12 | PROVIDERS: Visit Provider Physician Assistant | DX: M25.562 Pain in left knee (principal); M25.561 Pain in right knee; M17.11 Unilateral primary osteoarthritis, right knee | CPT/HCPCS: 20610; 73560; 99202 ==

== ENCOUNTER 2024-12-30 10:54 | Outpatient (AMB) | payer OTHER, SELFPAY ==
--- NOTE | 2024-12-30 10:56 | A.OFFVIS_ITS ---
Vital Signs 12/30/24 11:13 Height 5 ft 6 in Weight 298 lb BMI 48.1 BP 132/78 Blood Pressure Location Lt brachial Position Sitting Pulse 70 Intake Visit Reasons: Anemia Intake Note: New patient in office today for anemia. CC: Patient c/o hearburn, and constipation. Embroidery Worker Required: No Accompanied by: Self / Same As Patient Allergies calcium Allergy (Severe, Verified 12/30/24 11:20) swollen NSAIDS (Non-Steroidal Anti-Inflamma Allergy (Severe, Verified 12/30/24 11:20) Angioedema oyster extract Allergy (Severe, Verified 12/30/24 11:20) swollen ibuprofen Allergy (Verified 12/30/24 11:20) Swelling amoxicillin Allergy (Unknown, Uncoded 02/20/24 10:34) DISCHARGE HPI HPI Anemia: Details: 39-year-old female here for initial evaluation of anemia. She is referred by [facility] primary care practices in [facility]. PMX Morbid obesity Asthma Allergic rhinitis Pre diabetes HPV /history of syphilis Carpal tunnel syndrome Meralgia paresthetica left side * SURGICAL HISTORY Tonsillectomy section * ALLERGIES NSAIDs Mounjaro OYSTER shell calcium * [employer] Discovery LABS: None recent nurse system TODAY'S VISIT This will be her first EGD/colonoscopy. She has occasional CIC and a lot of HB which she treats with OTC Pepto and TUMS. Her asthma is well controlled and she has no cardiac problems. She had N/V with prior deep anesthesia no other problems. She has a hx of HPV no other ID. No FHX crc, stomach cancer or polyps her sister also struggles with anemia. [facility] Medical History Depression Morbid obesity Surgical History Hx of tubal ligation Hx of section Family History Father Hypertension Hip pain Mother Hypertension Diabetes mellitus Acute depression Brother No problems noted. Brother No problems noted. Sister No problems noted. Sister No problems noted. Son No problems noted. Son No problems noted. Daughter No problems noted. 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 Review of Systems Const Denies fatigue, Denies fever(s), Denies night sweats, Denies poor appetite and Denies weight loss ENT Reports Normal hearing present, Denies dental pain, Denies dysphagia, Denies hearing loss, Denies mouth pain, Denies odynophagia, Denies throat swelling, Denies tongue swelling and Reports other (Dentition adequate) Card Reports no additional complaints Resp Reports no additional complaints GI Details: Denies abdominal pain, Denies melena, Denies bloating, Denies hematochezia, Denies constipation, Denies GI cramping, Denies dysphagia, Denies excessive flatus, Denies early satiety, Denies heartburn, Denies diarrhea, Denies nausea, Denies odynophagia, Denies vomiting and Denies hematemesis Musc Details: Severe plantar fasciitis/foot and ankle problems Reports abnormal gait and Reports arthralgias Skin/Breast Denies pruritus, Denies lesions, Denies rash and Denies jaundice Neuro Reports Normal hearing present, Denies Abnormal speech present and Reports abnormal gait Endo Denies fatigue Aller/Immun Denies throat swelling and Denies tongue swelling Physical Exam Vital Signs: Last Vital Signs Pulse 70 12/30/24 11:13 BP 132/78 12/30/24 11:13 BMI result Body Mass Index 48.1 Const General: cooperative, no acute distress, well developed and well groomed Nutritional Appearance: well nourished, obese morbidly obese and overweight Orientation/consciousness: oriented to person, oriented to place and oriented to time Limitations: No language barrier HEENT Head: Yes normocephalic and Yes atraumatic Eyes General: appearance normal, both eyes and all related structures Conjunctivae: conjunctival abnormal bilateral pallor Pupils: Equal, round and reactive pupils present Neck Neck: Yes normal visual inspection and Yes no lymphadenopathy Thyroid: Thyroid normal Resp Effort & Inspection: normal respiratory effort and able to speak in complete sentences Auscultation: clear to auscultation bilaterally Cardio Rate: regular rate Rhythm: regular rhythm Heart sounds: Normal, physiologic split S2 sound present Peripheral pulses: radial pulses present and posterior tibial pulses present GI Inspection: No distended, Yes Abdominal panniculus present and Yes obesity Palpation (GI): Soft to palpation, nontender, no guarding, not rigid and No hepatosplenomegaly present Percussion: Yes normal to percussion Auscultation: normal bowel sounds Rectal Exam - Female: deferred Skin General skin exam: no rashes or lesions noted, turgor normal, skin not dry, no jaundice, No spider nevi and no striae Rashes: no rashes Nails: normal Neuro General: oriented to person, oriented to place and oriented to time Cranial nerves: Yes Equal, round and reactive pupils present and Yes Normal hearing present Speech: No Abnormal speech present Extrem General: Yes normal exam except as noted (walking boot left foot for PF), No clubbing, No cyanosis and No edema Psych Appearance: grossly normal and well kempt Mental Status: mental status grossly normal Speech and movement: Normal speech and movement present Affect: normal affect Attitude: cooperative Thought process: Circumstantial thought process present and not confabulating Thought content: Normal thought content present Insight: Limited insight present (Psych) Judgement: Limited judgement present (Psych) Assessment & Plan Assessment & Plan (1) Pre-op examination: Code(s): Z01.818 - Encounter for other preprocedural examination Category: Medical (2) Anemia: Code(s): D64.9 - Anemia, unspecified Category: Medical Plan This will be her first EGD/colonoscopy. She has occasional CIC and a lot of HB which she treats with OTC Pepto and TUMS. Her asthma is well controlled and she has no cardiac problems. She had N/V with prior deep anesthesia no other problems. She has a hx of HPV no other ID. No FHX crc, stomach cancer or polyps her sister also struggles with anemia. In general, I have no baseline CBC but she says she has been on iron supplementation without success. To her her periods are normal and not excessive, she eats plenty of meats an iron rich foods, and she does not note any black stools or hematochezia. I explained to her that our role will be to rule out if there is any slow GI losses. Otherwise the differential diagnosis is quite wide and could include early destruction of blood cells, a bone marrow problem with production of red blood cells, early demise her damage to blood cells such as in a spleen problem, or simply a genetic variant with something like a thalassemia. Obviously, many of these possibilities would need to be investigated by a panel flow machine operator. Orders: Orders Complete Blood Count Auto Diff Today A63.0 - Anogenital (venereal) warts, D64.9 - Anemia, unspecified, G56.00 - Carpal tunnel syndrome, unspecified upper limb, G57.10 - Meralgia paresthetica, unspecified lower limb, J45.909 - Unspecified asthma, uncomplicated, R73.03 - Prediabetes, Z01.818 - Encounter for other preprocedural examination Comprehensive Met. Panel Today A63.0 - Anogenital (venereal) warts, D64.9 - Anemia, unspecified, G56.00 - Carpal tunnel syndrome, unspecified upper limb, G57.10 - Meralgia paresthetica, unspecified lower limb, J45.909 - Unspecified asthma, uncomplicated, R73.03 - Prediabetes, Z01.818 - Encounter for other preprocedural examination Referrals GI Procedure Notification A63.0 - Anogenital (venereal) warts, D64.9 - Anemia, unspecified, G56.00 - Carpal tunnel syndrome, unspecified upper limb, G57.10 - Meralgia paresthetica, unspecified lower limb, J45.909 - Unspecified asthma, uncomplicated, R73.03 - Prediabetes, Z01.818 - Encounter for other preprocedural examination Medications: New sodium,potassium,mag sulfates 17.5-3.13-1.6 gram (Suprep Bowel Prep Kit) 480 mL orally; FOR COLONOSCOPY PREP 354 mL 0RF Coding Level of Care Code New Pt Level 3 (78796) Diagnoses Pre-op examination Z01.818 Anemia D64.9
[2024-12-30 11:13] VITALS: BP 132/78; PULSE 70; BMI 48.1
--- OUTSIDE RECORDS SUMMARY | 2024-12-30 13:51 | XMS_ITS | Clinical Summary ---
Author Organization 175 [facility] Address [address] [place] [address] Phone Care Team Providers Care Crane Manager Name Role Phone Patria Wilkinson Primary Care Provider [phone] Allergies Active Allergy Reactions Criticality Noted Date Comments Nsaids (Non-Steroidal Anti-I nflammatory Drug) Angioedema High 12/17/2021 Shellfish Derived Swelling High 12/17/2021 Medications acetaminophen (Pain Relief, acetaminophen,) 650 mg 8 hr tablet Take 1 tablet (650 mg total) by mouth every 8 (eight) hours if needed for mild pain. Do not crush, chew, or split. 90 tablet 11/23/2024 Encounters Date Type Department Care Team Description 11/23/2024 10:15 AM EDT Office Visit [facility] [address] [phone] Hansel Barahona DPM Left foot pain (Primary Dx); Pes planus of both feet; Equinus contracture of left ankle; Plantar fasciitis from Last 3 Months Social History Tobacco Use Types Packs/Day Years Used Date Smoking Tobacco: Never Assessed Comments Unknown Sex and Gender Information Value Date Recorded Sex Assigned at Not on file Legal Sex Female 8:28 AM EST Gender Identity Not on file Sexual Orientation Not on file Plan of Treatment Upcoming Encounters Date Type Department Care Team ([facility] st Contact Info) Description 01/19/2025 9:30 AM EST Office Visit [facility] [address] [phone] Hansel Barahona, DPM 175 [facility] [address] [place] [address] Health Maintenance Due Date Last Done Comments Breast Cancer Screening 1983 Hepatitis B Vaccines (1 of 3 - 19+ 3-dose series) 2002 Cervical Cancer Screening: Pap Smear 2004 HPV Vaccines (1 - 3-dose SCDM series) 2010 HIV Screening 02/17/2022 Hepatitis C Screening 02/17/2022 Social Influencers of Health Screening 02/17/2022 Depression Screening 03/17/2024 COVID-19 Vaccine ( season) 2024 02/09/2022, 12/28/2020, 05/16/2020, Additional history exists DTaP,Tdap,and Td Vaccines (2 - Td or Tdap) 07/07/2033 07/08/2023 RSV Immunization Adult Patients (1 - 1-dose 75+ series) 2058 Influenza Vaccine Completed 11/20/2024, , 01/15/2021, Additional history exists HIB Vaccines Aged Out No longer eligi ble based on patient's age to complete this topic Hepatitis A Vaccines Aged Out No long er eligible based on patient's age to complete this topic IPV Vaccines Aged Out No longer eligi ble based on patient's age to complete this topic MMR Vaccines Aged Out No longer eligi ble based on patient's age to complete this topic Meningococcal ACWY Vaccine Aged Out N o longer eligible based on patient's age to complete this topic Meningococcal B Vaccine Aged Out No l onger eligible based on patient's age to complete this topic Pneumococcal Vaccine: Pediatrics (0 to 5 Years) and At-Risk Patients (6 to 49 Years) Aged Out No longer eligible based on patient's age to complete this topic RSV Immunization Patients Under 20 months Aged Out No longer eligible based on patient's age to complete this topic Varicella Vaccines Aged Out No longer eligible based on patient's age to complete this topic Insurance [facility] MEDICAID ADVANTAGE Care Teams Crane Manager Relationship Specialty Start Date End Date Patria Wilkinson PA [address] [place] [phone] PCP - General Physician Coffee Shop Aide 09/08/24
== END 2024-12-30 11:48 | disposition home or self-care (01) ==
LOC: HO.HGI 10:55
PROVIDERS: PCP Physician Assistant Medical; Visit Provider Nurse Practitioner
DX: Z01.818 Encounter for other preprocedural examination (principal); Z12.11 Encounter for screening for malignant neoplasm of colon; D64.9 Anemia, unspecified
CPT/HCPCS: 99203

== ENCOUNTER → 2024-12-30 10:54 | Outpatient (BNVA) | payer OTHER, SELFPAY | PROVIDERS: PCP Physician Assistant Medical; Visit Provider Nurse Practitioner | DX: Z01.818 Encounter for other preprocedural examination (principal); D64.9 Anemia, unspecified | CPT/HCPCS: 99202 ==

== ENCOUNTER 2024-12-31 11:57 | Outpatient (REF) | payer OTHER, SELFPAY ==
[2024-12-31 12:14] LABS: MANUAL DIFF FLAG NO
[2024-12-31 14:05] LABS: Hematocrit 33.7 % (37.0-47.0); Hemoglobin 9.6 g/dl (12.0-16.0); Imm Gran Abs Auto 0.03 X10*3/uL (0.00-0.03); Imm Gran Pct Auto 0.3 % (0.0-0.4); Lymphocytes Absolute Auto 2.6 X10*3/uL (1.2-4.9); Mean Corpuscular HGB Conc 28.5 g/dl (31.0-35.0); Mean Corpuscular Hemoglobin 18.9 pg (27.0-33.0); Mean Corpuscular Volume 66.5 fL (80.0-98.0); NRBC Abs Auto 0.000 X10*3/uL (0.0-0.012); NRBC Pct Auto 0.0 /100WBC (0.0-0.2); Platelet Count 494 X10*3/uL (160-400); Red Blood Count 5.07 X10*6/uL (4.20-5.50); White Blood Count 8.9 X10*3/uL (4.8-10.8)
--- OUTSIDE RECORDS SUMMARY | 2024-12-31 14:43 | XMS_ITS | Clinical Summary ---
Author Organization 175 [facility] Address [address] [place] [address] Phone Care Team Providers Care Security Operations Center Operator Name Role Phone Patria Wilkinson Primary Care Provider [phone] Allergies Active Allergy Reactions Criticality Noted Date [...] Description 11/23/2024 10:15 AM EDT Office Visit [facility] [address] [phone] Hansel Barahona DPM Left foot [...] Upcoming Encounters Date Type Department Care Team ([facility] st Contact Info) Description 01/19/2025 9:30 AM EST Office Visit [facility] [address] [phone] Hansel Barahona, DPM 175 [facility] [address] [place] [address] Health Maintenance Due Date Last Done Comments [...] patient's age to complete this topic Insurance [facility] MEDICAID ADVANTAGE Care Teams Security Operations Center Operator Relationship Specialty Start Date End Date Patria Wilkinson PA [address] [place] [phone] PCP - General Physician Winter Sports Manager 09/08/24
[2024-12-31 15:55] LABS: Alanine Aminotransferase 12 U/L (0-31); Albumin Level 4.1 g/dL (3.5-5.0); Anion Gap 13 (12-20); Aspartate Amino Transferase 15 U/L (5-31); Blood Urea Nitrogen 11 mg/dL (9-16); Calcium 8.9 mg/dL (8.4-10.2); Carbon Dioxide 27 mmol/L (22-29); Chloride 106 mmol/L (96-108); Estimated Glomerular Filt Rate > 60; Potassium 3.7 mmol/L (3.3-5.1); Sodium 142 mmol/L (135-145); Total Protein 8.0 g/dL (6.5-8.0)
[2024-12-31 18:07] LABS: Alkaline Phosphatase 74 U/L (39-117)
== END 2024-12-31 11:58 | disposition home or self-care (01) ==
LOC: HO.LAB 11:57
PROVIDERS: PCP Physician Assistant Medical; Visit Provider Nurse Practitioner
DX: Z01.818 Encounter for other preprocedural examination (principal); D64.9 Anemia, unspecified; J45.909 Unspecified asthma, uncomplicated; R73.03 Prediabetes; A63.0 Anogenital (venereal) warts; G56.00 Carpal tunnel syndrome, unspecified upper limb; G57.10 Meralgia paresthetica, unspecified lower limb
CPT/HCPCS: 36415; 80053; 85025

== ENCOUNTER 2025-01-12 08:30 | Outpatient (REF) | payer OTHER, SELFPAY ==
--- NOTE | ~2025-01-12 | XR_ITS ---
EXAMINATION: XR KNEE AP STANDING CLINICAL INFORMATION: M25.561 - Pain in right knee COMPARISON: February 20, 2024. TECHNIQUE: AP bilateral standing view of the knees was obtained. FINDINGS: Limited examination demonstrated the joint space narrowing with associated sclerosis along the articular surface involving the medial compartment of the right and to a lesser extent left knee. No lytic or thick lesion. No acute cortical disruption. XR/XR knee standing BI IMPRESSION: Medial compartment osteoarthrosis/osteoarthritis, mild to moderate involving mostly the right knee. Electronically signed by: Bebeto Pandya MD 01/12/2025 08:56 AM EDT
--- OUTSIDE RECORDS SUMMARY | 2025-01-13 09:13 | XMS_ITS | Clinical Summary ---
Author Organization 175 [facility] Address [address] [place] [address] Phone Care Team Providers Care Operative Supervisor Name Role Phone Patria Wilkinson Primary Care Provider [phone] Allergies Active Allergy Reactions Criticality Noted Date [...] Description 11/23/2024 10:15 AM EDT Office Visit [facility] [address] [phone] Hansel Barahona DPM Left foot [...] Upcoming Encounters Date Type Department Care Team ([facility] st Contact Info) Description 01/19/2025 9:30 AM EST Office Visit [facility] [address] [phone] Jun Hansel Kelsie, DPM [address] [place] [address] Health Maintenance Due Date Last Done Comments [...] patient's age to complete this topic Insurance [facility] MEDICAID ADVANTAGE Care Teams Operative Supervisor Relationship Specialty Start Date End Date Patria Wilkinson PA [address] [place] [phone] PCP - General Physician Government Relations Manager 09/08/24
== END 2025-01-12 08:31 | disposition home or self-care (01) ==
LOC: HO.HOSX 08:30
PROVIDERS: Visit Provider Physician Assistant
DX: M17.11 Unilateral primary osteoarthritis, right knee (principal)
CPT/HCPCS: 20610; 73565; 99212; J0665; J1100; J2003

== ENCOUNTER 2025-01-12 08:39 | Outpatient (AMB) | payer OTHER, SELFPAY ==
--- NOTE | 2025-01-12 08:45 | MHC.OFFVIS ---
Vital Signs 01/12/25 08:55 Height 5 ft 6 in Weight 298 lb BMI 48.1 Intake Visit Reasons: OV- RT knee pain las inj 02/20/24 Intake Note: Jessica 39 year old female who presents today for a follow up of right knee OA. Patient was last seen 02/20/24, she was given an injection. Today patient reports injection helped for about a month. Her pain is mostly located at the posterior asepct of leg. Her pain increases with ambulation. Finds little relief with Tylenol. Allergies calcium Allergy (Severe, Verified 01/12/25 08:56) swollen NSAIDS (Non-Steroidal Anti-Inflamma Allergy (Severe, Verified 01/12/25 08:56) Angioedema oyster extract Allergy (Severe, Verified 01/12/25 08:56) swollen ibuprofen Allergy (Verified 01/12/25 08:56) Swelling amoxicillin Allergy (Unknown, Uncoded 01/12/25 08:56) DISCHARGE HPI HPI OV- RT knee pain las inj 02/20/24: Details: 39 yo female returns to the office today for right knee pain. She had an injection 02/20/24 with moderate relief. She was able to get around and go upstairs comfortable but over the last month or so she has developed pain. The pain is along the anterior portion of the knee and extends to the back . Difficulty up and down stairs. [facility] Medical History Depression Morbid obesity Surgical History Hx of tubal ligation Hx of section Family History Father Hypertension Hip pain Mother Hypertension Diabetes mellitus Acute depression Brother No problems noted. Brother No problems noted. Sister No problems noted. Sister No problems noted. Son No problems noted. Son No problems noted. Daughter No problems noted. 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 Review of Systems Const All systems reviewed & are unremarkable except as noted in HPI and below Physical Exam Vital Signs: BMI result Body Mass Index 48.1 Const General: cooperative, healthy appearing, comfortable, no acute distress, well developed and alert Orientation/consciousness: patient oriented x3 HEENT Head: Yes normal to inspection, Yes normocephalic and Yes atraumatic Eyes General: appearance normal, both eyes and all related structures Resp Effort & Inspection: normal respiratory effort and able to speak in complete sentences Cardio Rate: regular rate Peripheral pulses: Peripheral pulses 2+ throughout GI Palpation (GI): Soft to palpation Skin Lesions: no lesions Rashes: no rashes Neuro General: patient oriented x3 Extrem Other: Right knee: Skin intact, no erythema or joint effusion. Lateral retropatellar tenderness present along with tenderness along the medial joint line. Full ROM with crepitus. Negative Eileen?s. No ligamentous laxity. NVI. Office Procedures AMB Joint Injection/Aspiration Joint Injection/Aspiration Primary Site: right knee Prep: site was prepped using aseptic technique, ethochloride spray was applied and injection warnings given Injected: 40 mg of, with 3 mL of, 1% plain lidocaine, 0.25% bupivacaine, in the joint and decadron Approach Used: anterolateral Procedure: The patient tolerated the procedure well and there was some relief with the local anesthesia Coding - Glenohumeral/Tronchanteric Bursa/Intraarticular Procedure code (CPT) selection complete Results Reviewed Results Reviewed: Xrays were obtained in the office today and personally reviewed by me of the right knee patellofemoral arthritis Assessment & Plan Assessment & Plan (1) Osteoarthritis of right knee: Code(s): M17.11 - Unilateral primary osteoarthritis, right knee Category: Medical Plan: We discussed options today which includes repeat steroid injection given she did have some relief. She did consent to right knee injection today which she tolerated well. She will continue with activities as tolerated and if symptoms persist or worsen she will contact our office otherwise follow up as needed. Orders: Orders XR knee standing BI Today M25.561 - Pain in right knee, M25.562 - Pain in left knee Coding Level of Care Code Est Pt Level 3 (52062) Complex EM visit Add On G2211 Diagnoses Osteoarthritis of right knee M17.11 CPT Codes Coding - Joint 7: 50326 - Glenohumeral/Tronchanteric Bursa/Intraarticular ([id number])
[2025-01-12 08:55] VITALS: BMI 48.1
== END 2025-01-12 09:36 | disposition home or self-care (01) ==
LOC: HO.HOS 08:39
PROVIDERS: PCP Physician Assistant Medical; Visit Provider Physician Assistant
DX: M17.11 Unilateral primary osteoarthritis, right knee (principal)
CPT/HCPCS: 20610; 99213

== ENCOUNTER → 2025-01-12 08:46 | Outpatient (BNV) | payer OTHER, SELFPAY | PROVIDERS: Visit Provider Radiology Diagnostic Radiology | DX: M25.561 Pain in right knee (principal) | CPT/HCPCS: 73565 ==